=== PATIENT | female | born 1960 | race Caucasian/White ===

== ENCOUNTER 2017-11-21 19:42 | Emergency (ER) | payer MEDICAID ==
[~2017-11-21] VITALS: Ht 175.3 cm; Wt 63.6 kg
[~2017-11-21 19:42] MED LIST: AZIT250T27 PO; BECL8.7A3 IH; COM5T PO; COMIN IH; FOLI-43 PO; HYDR25CA PO; IBUP-1986 PO; METH4TAB81 PO; MUPI15CR TOP; NEOM14.216 TP; OLAN5TAB5 PO; PRED20TA PO; TIOT18CA7 IH; VAL5T PO; [UNRECOGNIZED DRUG - CODE] PO
[2017-11-21 19:48] VITALS: BP 127/40
[2017-11-21 20:33] LABS: BASOPHILS % (AUTO) 0.3 % (0-1); EOSINOPHILS # (AUTO) 0.5 X10'3 (0-0.9); EOSINOPHILS % (AUTO) 7.7 % (0-6); HEMOGLOBIN 13.5 g/dl (12.0-16.0); LYMPHOCYTES # (AUTO) 2.7 X10'3 (1.1-4.8); LYMPHOCYTES % (AUTO) 43.9 % (21-51); MEAN CORPUSCULAR HEMOGLOBIN 31.7 PG (27.0-31.0); MEAN CORPUSCULAR HGB CONC 32.9 % (33.0-36.5); MEAN CORPUSCULAR VOLUME 96.3 FL (78-98); MEAN PLATELET VOLUME 7.7 FL (7.4-10.4); MONOCYTES # (AUTO) 0.6 X10'3 (0-0.9); MONOCYTES % (AUTO) 9.7 % (2-12); NEUTROPHILS # (AUTO) 2.4 X10'3 (1.8-7.7); NEUTROPHILS % (AUTO) 38.4 % (42-75); PLATELET COUNT 206 X10'3 (140-440); RED BLOOD COUNT 4.26 X10'6 (4.20-5.60); WHITE BLOOD COUNT 6.2 X10'3 (4.5-11.0)
[2017-11-21] MEDS ORDERED: azithromycin/NS 500mg/250ml 250 ML IV ONE (20:35)
[2017-11-21] MEDS ORDERED: CefTRIAXone 2gm/NS 100ml IVPB 100 ML IV ONE (20:35)
[2017-11-21] MEDS ORDERED: ipratropium/albuterol 3ml nebule NEB ONE (20:35)
[2017-11-21 20:49] LABS: ALANINE AMINOTRANSFERASE 86 U/L (12-78); ALBUMIN 3.7 G/DL (3.4-5.0); ALKALINE PHOSPHATASE 109 IU/L (46-116); ANION GAP 3 (8-16); ASPARTATE AMINO TRANSFERASE 98 U/L (10-37); BILIRUBIN,TOTAL 0.2 MG/DL (0.1-1.0); BLOOD UREA NITROGEN 12 MG/DL (7-18); BUN/CREATININE RATIO 12.6 (6.6-38.0); CALCIUM 9.6 MG/DL (8.5-10.1); CHLORIDE 109 MMOL/L (99-107); CREATININE 0.95 MG/DL (0.40-0.90); GLUCOSE 94 MG/DL (70-104); POTASSIUM 4.4 MMOL/L (3.5-5.1); SODIUM 144 MMOL/L (135-145); TOTAL CARBON DIOXIDE 31.7 MMOL/L (24-32); TOTAL PROTEIN 7.3 G/DL (6.4-8.2); eGFR 61 ML/MIN
[2017-11-21 20:56] LABS: MAGNESIUM 2.2 MG/DL (1.5-2.4)
== END 2017-11-21 21:08 | disposition left against medical advice (07) ==
LOC: ER 19:43
DX: J18.1 Lobar pneumonia, unspecified organism (principal); B19.20 Unspecified viral hepatitis C without hepatic coma; F41.9 Anxiety disorder, unspecified; J44.0 Chronic obstructive pulmonary disease with (acute) lower respiratory infection; F17.210 Nicotine dependence, cigarettes, uncomplicated; F31.9 Bipolar disorder, unspecified
CPT/HCPCS: 36415; 71010; 80053; 83735; 83880; 84484; 85025; 99285; J0456; J0696

== ENCOUNTER 2018-03-01 14:08 | Inpatient (IN) | payer MEDICAID ==
[~2018-03-01] VITALS: Ht 177.8 cm; Wt 63.6 kg
[2018-03-01 15:14] LABS: BASOPHILS % (AUTO) 0.1 % (0-1); EOSINOPHILS # (AUTO) 0.1 X10'3 (0-0.9); EOSINOPHILS % (AUTO) 0.8 % (0-6); HEMATOCRIT 36.8 % (35.0-45.0); HEMOGLOBIN 12.2 g/dl (12.0-16.0); LYMPHOCYTES # (AUTO) 1.8 X10'3 (1.1-4.8); LYMPHOCYTES % (AUTO) 15.3 % (21-51); MEAN CORPUSCULAR HGB CONC 33.1 % (33.0-36.5); MEAN CORPUSCULAR VOLUME 96.7 FL (78-98); MEAN PLATELET VOLUME 9.1 FL (7.4-10.4); MONOCYTES # (AUTO) 1.3 X10'3 (0-0.9); NEUTROPHILS # (AUTO) 8.3 X10'3 (1.8-7.7); NEUTROPHILS % (AUTO) 72.8 % (42-75); PLATELET COUNT 187 X10'3 (140-440); RED BLOOD COUNT 3.81 X10'6 (4.20-5.60); RED CELL DISTRIBUTION WIDTH 14.4 % (11.5-14.5); WHITE BLOOD COUNT 11.4 X10'3 (4.5-11.0)
[2018-03-01 15:28] LABS: ALANINE AMINOTRANSFERASE 31 U/L (12-78); ALBUMIN 2.6 G/DL (3.4-5.0); ALBUMIN/GLOBULIN RATIO 0.5 (1.1-1.5); ALKALINE PHOSPHATASE 85 IU/L (46-116); ANION GAP 12 (8-16); ASPARTATE AMINO TRANSFERASE 27 U/L (10-37); BILIRUBIN,TOTAL 0.3 MG/DL (0.1-1.0); BLOOD UREA NITROGEN 9 MG/DL (7-18); BUN/CREATININE RATIO 10.5 (6.6-38.0); CALCIUM 9.8 MG/DL (8.5-10.1); CHLORIDE 96 MMOL/L (99-107); CREATININE 0.86 MG/DL (0.40-0.90); GLUCOSE 136 MG/DL (70-104); POTASSIUM 3.9 MMOL/L (3.5-5.1); SODIUM 133 MMOL/L (135-145); TOTAL CARBON DIOXIDE 25.1 MMOL/L (24-32); TOTAL PROTEIN 7.9 G/DL (6.4-8.2); eGFR 69 ML/MIN
[2018-03-01 15:34] LABS: ANISOCYTOSIS 1+; PLATELET ESTIMATE NORMAL; TOTAL CELLS COUNTED 100
[2018-03-01] MEDS ORDERED: levoFLOXACIN-Levaquin 500mg/D5 100 ML IV ONE (15:55)
[2018-03-01] MEDS ORDERED: ipratropium/albuterol 3ml nebule NEB ONE (15:55)
[2018-03-01 16:10] LABS: LIPASE 85 U/L (73-393)
[2018-03-01] MEDS ORDERED: magnesium hydroxide 30ml (MOM) UD suspension PO PRN (17:45)
[2018-03-01] MEDS ORDERED: ibuprofen tablet 400 MG TABLET PO PRN (17:45)
[2018-03-01] MEDS ORDERED: mag hydrox/Alum hydrox/simeth 30ml oral suspension PO PRN (17:45)
[2018-03-01] MEDS ORDERED: ondansetron/PF 4mg/2ml inj IV PRN (17:45)
[2018-03-01] MEDS ORDERED: hydrOXYzine 25 MG tablet PO PRN (17:50)
[2018-03-01] MEDS ORDERED: prednisone 10mg tablet PO SCH (17:55)
[2018-03-01] MEDS ORDERED: albuterol 2.5 MG/3 ML nebule NEB PRN (17:55)
[2018-03-01] MEDS: normal saline 1000ml 1,000 ML IV SCH (18:31)
[2018-03-01] MEDS: predniSONE 20 mg tablet PO SCH (18:32)
[2018-03-01] MEDS: enoxaparin 40mg/0.4ml syringe SUBCUT SCH (18:33)
[2018-03-01] MEDS: ipratropium/albuterol 3ml nebule NEB SCH ×2 (19:26→23:13)
[2018-03-01 19:45] LABS: URINE AMPHETAMINE SCREEN NEGATIVE (Neg); URINE BARBITUATE SCREEN NEGATIVE (Neg); URINE BENZODIAZEPINES SCREEN NEGATIVE (Neg); URINE CANNABINOID SCREEN NEGATIVE (Neg); URINE COCAINE SCREEN NEGATIVE (Neg); URINE METHADONE SCREEN NEGATIVE (Neg); URINE OPIATE SCREEN POSITIVE (Neg); URINE PHENCYCLIDINE SCREEN NEGATIVE (Neg)
[2018-03-01] MEDS ORDERED: lithium carbonate 150mg capsule PO SCH (20:00)
[2018-03-01] MEDS ORDERED: olanzapine 10mg tablet PO SCH (21:00)
[2018-03-01] MEDS ORDERED: [UNRECOGNIZED DRUG - OTHER] IH SCH (21:00)
[2018-03-01] MEDS ORDERED: temazepam 15mg capsule PO PRN (21:00)
[2018-03-01] MEDS ORDERED: ALBUTEROL SULFATE IH SCH (21:00)
[2018-03-01] MEDS ORDERED: IPRATROPIUM IH SCH (21:00)
[2018-03-01 21:15] VITALS: BP 138/56
[2018-03-01 23:00] VITALS: BP 106/47
[2018-03-01 23:31] LABS: ABG BASE EXCESS 0.1 mmol/L (-2.0-3.0); ABG OXYGEN SATURATION 98.5 % (95-98); ABG PCO2 (T) 40.7 mmHg (32.0-45.0); ABG PH (T) 7.404 (7.350-7.450); ABG PO2 (T) 118.7 mmHg (83-108); ALLEN'S TEST Positive; FCOHb 0.3 % (0.5-1.5); FLOW 4 L/min; FMetHb 0.1 % (0.3-1.12); FO2Hb 98.1 % (94-100); PATIENT TEMPERATURE 36.6; TOTAL HEMOGLOBIN 11.7 G/dl (12.0-16.0)
[2018-03-02] MEDS: ipratropium/albuterol 3ml nebule NEB SCH ×2 (03:22→07:24)
[2018-03-02] MEDS: normal saline 1000ml 1,000 ML IV SCH (05:11)
[2018-03-02 06:05] LABS: BASOPHILS % (AUTO) 0.1 % (0-1); EOSINOPHILS % (AUTO) 0.1 % (0-6); HEMATOCRIT 36.4 % (35.0-45.0); HEMOGLOBIN 11.9 g/dl (12.0-16.0); LYMPHOCYTES # (AUTO) 0.7 X10'3 (1.1-4.8); LYMPHOCYTES % (AUTO) 9.2 % (21-51); MEAN CORPUSCULAR HEMOGLOBIN 31.8 PG (27.0-31.0); MEAN CORPUSCULAR HGB CONC 32.6 % (33.0-36.5); MEAN CORPUSCULAR VOLUME 97.4 FL (78-98); MEAN PLATELET VOLUME 9.8 FL (7.4-10.4); MONOCYTES # (AUTO) 0.4 X10'3 (0-0.9); MONOCYTES % (AUTO) 5.1 % (2-12); NEUTROPHILS # (AUTO) 6.2 X10'3 (1.8-7.7); NEUTROPHILS % (AUTO) 85.5 % (42-75); PLATELET COUNT 159 X10'3 (140-440); RED BLOOD COUNT 3.74 X10'6 (4.20-5.60); RED CELL DISTRIBUTION WIDTH 13.6 % (11.5-14.5); WHITE BLOOD COUNT 7.4 X10'3 (4.5-11.0)
[2018-03-02 06:11] LABS: ALBUMIN 2.3 G/DL (3.4-5.0); ANION GAP 11 (8-16); BLOOD UREA NITROGEN 14 MG/DL (7-18); BUN/CREATININE RATIO 13.7 (6.6-38.0); CALCIUM 9.9 MG/DL (8.5-10.1); CHLORIDE 104 MMOL/L (99-107); CREATININE 1.02 MG/DL (0.40-0.90); GLUCOSE 190 MG/DL (70-104); POTASSIUM 4.1 MMOL/L (3.5-5.1); SODIUM 138 MMOL/L (135-145); TOTAL CARBON DIOXIDE 23.4 MMOL/L (24-32); eGFR 56 ML/MIN
[2018-03-02] MEDS ORDERED: mupirocin 2% ointment 22GM TP SCH (08:00)
[2018-03-02] MEDS ORDERED: non-formulary drug (Tiotropium Bromide* (Spiriva*) 18 MCG) IH SCH (08:00)
[2018-03-02] MEDS ORDERED: fluticasone furoate 100MCG/puff inhaler IH SCH (08:00)
[2018-03-02] MEDS ORDERED: folic acid 1mg tablet PO SCH (08:00)
[2018-03-02] MEDS: predniSONE 20 mg tablet PO SCH (08:58)
[2018-03-02] MEDS: enoxaparin 40mg/0.4ml syringe SUBCUT SCH (08:58)
[2018-03-02 09:01] VITALS: BP 101/47
[2018-03-02] MEDS ORDERED: levoFLOXACIN 750MG TABLET PO SCH (11:00)
== END 2018-03-02 11:25 | disposition left against medical advice (07) | DRG 140 ==
LOC: ER 14:09 → ED HOLD 17:42 → EDBEDREQ 20:39 → SUR 3N 21:18
PROVIDERS: ADMIT Hospitalist; ATTEND Internal Medicine
DX: J44.0 Chronic obstructive pulmonary disease with (acute) lower respiratory infection (principal); J96.01 Acute respiratory failure with hypoxia; J18.1 Lobar pneumonia, unspecified organism; E46 Unspecified protein-calorie malnutrition; K74.60 Unspecified cirrhosis of liver; J44.1 Chronic obstructive pulmonary disease with (acute) exacerbation; E87.1 Hypo-osmolality and hyponatremia; B19.20 Unspecified viral hepatitis C without hepatic coma; F19.10 Other psychoactive substance abuse, uncomplicated; Z68.20 Body mass index [BMI] 20.0-20.9, adult; Z53.21 Procedure and treatment not carried out due to patient leaving prior to being seen by health care provider; F31.9 Bipolar disorder, unspecified; F17.210 Nicotine dependence, cigarettes, uncomplicated; G89.29 Other chronic pain; F41.9 Anxiety disorder, unspecified; R07.89 Other chest pain; Z88.8 Allergy status to other drugs, medicaments and biological substances; Z88.0 Allergy status to penicillin; Z79.899 Other long term (current) drug therapy
CPT/HCPCS: 36415; 36600; 71046; 80048; 80053; 80305; 82803; 83605; 83690; 85018; 85025; 87040; 87070; 94640; 94760; 96365; 97116; 97161; 97530; 99285; J1650; J1956; J2405; J7030; J7512

== ENCOUNTER 2018-04-27 21:19 | Emergency (ER) | payer MEDICAID ==
[~2018-04-27 21:19] MED LIST changes: -AZIT250T27 PO
== END 2018-04-27 22:45 | disposition left against medical advice (07) ==
LOC: ER 21:19
DX: T14.8XXA Other injury of unspecified body region, initial encounter (principal); Z53.21 Procedure and treatment not carried out due to patient leaving prior to being seen by health care provider; W57.XXXA Bitten or stung by nonvenomous insect and other nonvenomous arthropods, initial encounter; Y93.89 Activity, other specified; Y92.89 Other specified places as the place of occurrence of the external cause; Y99.8 Other external cause status

== ENCOUNTER 2018-04-29 13:37 | Emergency (ER) | payer MEDICAID ==
[~2018-04-29] VITALS: Ht 177.8 cm; Wt 64.7 kg
[2018-04-29] MEDS ORDERED: SULF1TAB49 PO (14:02)
[2018-04-29 14:14] VITALS: BP 111/56
== END 2018-04-29 14:16 | disposition home or self-care (01) ==
LOC: ER 13:38
DX: L03.113 Cellulitis of right upper limb (principal); L02.413 Cutaneous abscess of right upper limb; L08.9 Local infection of the skin and subcutaneous tissue, unspecified; J44.9 Chronic obstructive pulmonary disease, unspecified; Z86.19 Personal history of other infectious and parasitic diseases; Z56.0 Unemployment, unspecified; Z88.8 Allergy status to other drugs, medicaments and biological substances; Z88.6 Allergy status to analgesic agent; Z79.899 Other long term (current) drug therapy
CPT/HCPCS: 99283; A6255

== ENCOUNTER 2018-04-30 22:38 | Emergency (ER) | payer MEDICAID ==
[~2018-04-30] VITALS: Ht 175.3 cm; Wt 61.4 kg
[~2018-04-30 22:38] MED LIST changes: +SULF1TAB49 PO
[2018-04-30] MEDS ORDERED: normal saline 1000ML IV soln IV ONE (22:55)
[2018-04-30 23:13] LABS: CLARITY,URINE CLEAR (Clear); COLOR,URINE STRAW (Yellow); GLUCOSE, URINE NEGATIVE (Neg); KETONES,URINE NEGATIVE (Neg); LEUKOCYTE ESTERASE ,URINE NEGATIVE (Neg); NITRITES, URINE NEGATIVE (Neg); OCCULT BLOOD,URINE NEGATIVE (Neg); PROTEIN,URINE NEGATIVE (Neg); UROBILINOGEN,URINE 0.2 E.U/dL (0.2-1.0)
[2018-04-30 23:19] LABS: UA COLLECTION TYPE CLN CATCH MIDSTREAM
[2018-04-30] MEDS ORDERED: iohexol 300mg/ml 100ml inj. ONE (23:19)
[2018-04-30 23:31] LABS: BASOPHILS % (AUTO) 0.3 % (0-1); EOSINOPHILS # (AUTO) 0.5 X10'3 (0-0.9); EOSINOPHILS % (AUTO) 4.9 % (0-6); HEMATOCRIT 37.1 % (35.0-45.0); HEMOGLOBIN 12.5 g/dl (12.0-16.0); LYMPHOCYTES # (AUTO) 3.4 X10'3 (1.1-4.8); LYMPHOCYTES % (AUTO) 32.5 % (21-51); MEAN CORPUSCULAR HEMOGLOBIN 31.7 PG (27.0-31.0); MEAN CORPUSCULAR HGB CONC 33.8 % (33.0-36.5); MEAN PLATELET VOLUME 8.4 FL (7.4-10.4); MONOCYTES # (AUTO) 0.8 X10'3 (0-0.9); NEUTROPHILS # (AUTO) 5.6 X10'3 (1.8-7.7); NEUTROPHILS % (AUTO) 54.3 % (42-75); PLATELET COUNT 127 X10'3 (140-440); RED BLOOD COUNT 3.94 X10'6 (4.20-5.60); RED CELL DISTRIBUTION WIDTH 14.2 % (11.5-14.5); WHITE BLOOD COUNT 10.4 X10'3 (4.5-11.0)
[2018-04-30 23:42] LABS: INR 0.9 INR; PARTIAL THROMBOPLASTIN TIME 25 SECONDS (22-32); PROTHROMBIN TIME 9.1 SECONDS (9.0-12.0)
[2018-04-30 23:47] LABS: ALANINE AMINOTRANSFERASE 54 U/L (12-78); ALBUMIN 3.4 G/DL (3.4-5.0); ALBUMIN/GLOBULIN RATIO 0.9 (1.1-1.5); ALKALINE PHOSPHATASE 89 IU/L (46-116); ANION GAP 8 (8-16); ASPARTATE AMINO TRANSFERASE 97 U/L (10-37); BILIRUBIN,TOTAL 0.2 MG/DL (0.1-1.0); BLOOD UREA NITROGEN 11 MG/DL (7-18); BUN/CREATININE RATIO 10.1 (6.6-38.0); CALCIUM 9.3 MG/DL (8.5-10.1); CHLORIDE 102 MMOL/L (99-107); CREATININE 1.09 MG/DL (0.40-0.90); GLUCOSE 103 MG/DL (70-104); MAGNESIUM 2.1 MG/DL (1.5-2.4); SODIUM 137 MMOL/L (135-145); TOTAL CARBON DIOXIDE 26.6 MMOL/L (24-32); TOTAL PROTEIN 7.2 G/DL (6.4-8.2); eGFR 52 ML/MIN
[2018-05-01] MEDS ORDERED: MUPI22OI30 TOP (01:39)
[2018-05-01 01:45] VITALS: BP 102/80
[2018-05-01] MEDS ORDERED: CLIN300C85 PO (22:39)
== END 2018-05-01 02:10 | disposition home or self-care (01) ==
LOC: ER 22:39
DX: S51.801A Unspecified open wound of right forearm, initial encounter (principal); L08.89 Other specified local infections of the skin and subcutaneous tissue; J44.9 Chronic obstructive pulmonary disease, unspecified; Z88.0 Allergy status to penicillin; Z88.8 Allergy status to other drugs, medicaments and biological substances; X58.XXXA Exposure to other specified factors, initial encounter; Y93.89 Activity, other specified; Y92.89 Other specified places as the place of occurrence of the external cause; Y99.8 Other external cause status
CPT/HCPCS: 36415; 73201; 80053; 81003; 83605; 83735; 84145; 85025; 85610; 85730; 87040; 93005; 99285; J7030; Q9967; 96360

== ENCOUNTER 2018-05-04 11:24 | Outpatient (CLI) | payer MEDICAID ==
[~2018-05-04 11:24] MED LIST changes: +CLIN300C85 PO; +MUPI22OI30 TOP
== END 2018-05-04 23:59 | disposition home or self-care (01) ==
LOC: CARD DIAG 11:24
PROVIDERS: ATTEND Nurse Practitioner
DX: I08.0 Rheumatic disorders of both mitral and aortic valves (principal); R91.8 Other nonspecific abnormal finding of lung field; J44.9 Chronic obstructive pulmonary disease, unspecified; Z87.891 Personal history of nicotine dependence
CPT/HCPCS: 93306

== ENCOUNTER 2018-06-23 23:32 | Emergency (ER) | payer MEDICAID ==
[~2018-06-23] VITALS: Ht 175.3 cm; Wt 63.6 kg
[~2018-06-23 23:32] MED LIST changes: -MUPI22OI30 TOP; -SULF1TAB49 PO
[2018-06-24] MEDS ORDERED: HYDROcodone/acetaminophen 10/325mg tab PO ONE (00:40)
[2018-06-24] MEDS ORDERED: IBUP-1986 PO (00:43)
[2018-06-24] MEDS ORDERED: HYDR-569 PO (00:43)
[2018-06-24 00:53] VITALS: BP 101/41
== END 2018-06-24 00:54 | disposition home or self-care (01) ==
LOC: ER 23:33
DX: S80.02XA Contusion of left knee, initial encounter (principal); S80.01XA Contusion of right knee, initial encounter; J44.9 Chronic obstructive pulmonary disease, unspecified; F17.200 Nicotine dependence, unspecified, uncomplicated; Z88.0 Allergy status to penicillin; Z88.8 Allergy status to other drugs, medicaments and biological substances; Z79.899 Other long term (current) drug therapy; Z56.0 Unemployment, unspecified; W19.XXXA Unspecified fall, initial encounter; Y93.89 Activity, other specified; Y92.89 Other specified places as the place of occurrence of the external cause; Y99.8 Other external cause status
CPT/HCPCS: 73564; 99284

== ENCOUNTER 2018-06-24 09:26 | Emergency (ER) | payer MEDICAID ==
[~2018-06-24] VITALS: Ht 175.3 cm; Wt 63.6 kg
[~2018-06-24 09:26] MED LIST changes: +HYDR-569 PO
[2018-06-24 09:37] VITALS: BP 104/66
[2018-06-24] MEDS ORDERED: HYDROcodone/acetaminophen 5mg/325mg tablet PO ONE (10:15)
== END 2018-06-24 10:41 | disposition home or self-care (01) ==
LOC: ER 09:27
DX: S90.31XA Contusion of right foot, initial encounter (principal); J44.9 Chronic obstructive pulmonary disease, unspecified; Z88.0 Allergy status to penicillin; Z88.8 Allergy status to other drugs, medicaments and biological substances; Z79.899 Other long term (current) drug therapy; Z56.0 Unemployment, unspecified
CPT/HCPCS: 73660; 99284

== ENCOUNTER 2018-06-30 14:04 | Emergency (ER) | payer MEDICAID ==
[~2018-06-30] VITALS: Ht 177.8 cm; Wt 70.0 kg
[2018-06-30 15:15] LABS: ACETAMINOPHEN < 2.0 UG/ML (10-30); ALANINE AMINOTRANSFERASE 49 U/L (12-78); ALBUMIN 2.9 G/DL (3.4-5.0); ALBUMIN/GLOBULIN RATIO 0.9 (1.1-1.5); ALKALINE PHOSPHATASE 76 IU/L (46-116); ANION GAP 7 (8-16); ASPARTATE AMINO TRANSFERASE 64 U/L (10-37); BILIRUBIN,TOTAL 0.2 MG/DL (0.1-1.0); BLOOD UREA NITROGEN 16 MG/DL (7-18); BUN/CREATININE RATIO 16.3 (6.6-38.0); CALCIUM 8.7 MG/DL (8.5-10.1); CHLORIDE 109 MMOL/L (99-107); CREATININE 0.98 MG/DL (0.40-0.90); ETHANOL 0.253 GM/DL (0.0-0.010); GLUCOSE 87 MG/DL (70-104); POTASSIUM 4.4 MMOL/L (3.5-5.1); SODIUM 142 MMOL/L (135-145); TOTAL CARBON DIOXIDE 25.8 MMOL/L (24-32); TOTAL PROTEIN 6.2 G/DL (6.4-8.2); eGFR 59 ML/MIN
[2018-06-30 15:31] LABS: URINE HCG NEGATIVE (NEG)
[2018-06-30 15:34] LABS: CLARITY,URINE CLEAR (Clear); COLOR,URINE YELLOW (Yellow); GLUCOSE, URINE NEGATIVE (Neg); KETONES,URINE NEGATIVE (Neg); LEUKOCYTE ESTERASE ,URINE NEGATIVE (Neg); NITRITES, URINE NEGATIVE (Neg); OCCULT BLOOD,URINE NEGATIVE (Neg); PROTEIN,URINE NEGATIVE (Neg); UROBILINOGEN,URINE 0.2 E.U/dL (0.2-1.0)
[2018-06-30 15:36] LABS: UA COLLECTION TYPE VOIDED
[2018-06-30] MEDS ORDERED: normal saline 1000ML IV soln IV ONE (15:40)
[2018-06-30] MEDS ORDERED: folic acid 1mg/0.2ml inj IV ONE (15:40)
[2018-06-30] MEDS ORDERED: thiamine 100mg/ml 2ml inj. IV ONE (15:40)
[2018-06-30 17:23] VITALS: BP 112/55
[2018-07-01] MEDS ORDERED: IBUP-1984 PO (17:00)
== END 2018-06-30 17:24 | disposition home or self-care (01) ==
LOC: ER 14:04
DX: E86.0 Dehydration (principal); T42.6X5A Adverse effect of other antiepileptic and sedative-hypnotic drugs, initial encounter; F10.129 Alcohol abuse with intoxication, unspecified; J44.9 Chronic obstructive pulmonary disease, unspecified; F41.9 Anxiety disorder, unspecified; F31.9 Bipolar disorder, unspecified; Z56.0 Unemployment, unspecified; Z79.899 Other long term (current) drug therapy; Z88.8 Allergy status to other drugs, medicaments and biological substances; Z88.0 Allergy status to penicillin; Z88.5 Allergy status to narcotic agent; W01.0XXA Fall on same level from slipping, tripping and stumbling without subsequent striking against object, initial encounter; Y93.89 Activity, other specified; Y92.099 Unspecified place in other non-institutional residence as the place of occurrence of the external cause; Y99.9 Unspecified external cause status; Y90.9 Presence of alcohol in blood, level not specified
CPT/HCPCS: 36415; 80053; 80320; 80329; 81003; 81025; 93005; 96361; 96374; 96375; 99285; J3411; J3490; J7030

== ENCOUNTER 2018-07-26 21:14 | Emergency (ER) | payer MEDICAID ==
[~2018-07-26] VITALS: Ht 172.7 cm; Wt 63.6 kg
[~2018-07-26 21:14] MED LIST changes: +IBUP-1984 PO
[2018-07-26 21:45] LABS: BASOPHILS % (AUTO) 0.3 % (0-1); EOSINOPHILS # (AUTO) 0.6 X10'3 (0-0.9); EOSINOPHILS % (AUTO) 6.5 % (0-6); HEMATOCRIT 39.2 % (35.0-45.0); LYMPHOCYTES # (AUTO) 4.5 X10'3 (1.1-4.8); LYMPHOCYTES % (AUTO) 50.9 % (21-51); MEAN CORPUSCULAR HEMOGLOBIN 31.9 PG (27.0-31.0); MEAN CORPUSCULAR HGB CONC 33.2 % (33.0-36.5); MEAN CORPUSCULAR VOLUME 96.2 FL (78-98); MEAN PLATELET VOLUME 7.5 FL (7.4-10.4); MONOCYTES # (AUTO) 0.5 X10'3 (0-0.9); MONOCYTES % (AUTO) 5.2 % (2-12); NEUTROPHILS # (AUTO) 3.3 X10'3 (1.8-7.7); NEUTROPHILS % (AUTO) 37.1 % (42-75); PLATELET COUNT 192 X10'3 (140-440); RED BLOOD COUNT 4.07 X10'6 (4.20-5.60); WHITE BLOOD COUNT 8.8 X10'3 (4.5-11.0)
[2018-07-26 21:55] LABS: INR 0.9 INR; PARTIAL THROMBOPLASTIN TIME 24 SECONDS (22-32); PROTHROMBIN TIME 9.5 SECONDS (9.0-12.0)
[2018-07-26 22:21] LABS: ALANINE AMINOTRANSFERASE 63 U/L (12-78); ALBUMIN 3.5 G/DL (3.4-5.0); ALKALINE PHOSPHATASE 102 IU/L (46-116); ANION GAP 7 (8-16); ASPARTATE AMINO TRANSFERASE 65 U/L (10-37); BILIRUBIN,TOTAL 0.1 MG/DL (0.1-1.0); BLOOD UREA NITROGEN 18 MG/DL (7-18); CALCIUM 8.5 MG/DL (8.5-10.1); CHLORIDE 108 MMOL/L (99-107); CREATININE 1.06 MG/DL (0.40-0.90); GLUCOSE 94 MG/DL (70-104); POTASSIUM 4.2 MMOL/L (3.5-5.1); SODIUM 139 MMOL/L (135-145); TOTAL CARBON DIOXIDE 24.5 MMOL/L (24-32); TOTAL PROTEIN 6.9 G/DL (6.4-8.2); eGFR 54 ML/MIN
[2018-07-26 22:26] LABS: ETHANOL 0.313 GM/DL (0.0-0.010)
[2018-07-26 23:55] VITALS: BP 129/75
== END 2018-07-26 23:57 | disposition home or self-care (01) ==
LOC: ER 21:14
DX: F10.129 Alcohol abuse with intoxication, unspecified (principal); J44.9 Chronic obstructive pulmonary disease, unspecified; F17.210 Nicotine dependence, cigarettes, uncomplicated; Z56.0 Unemployment, unspecified; Z88.5 Allergy status to narcotic agent; Z88.0 Allergy status to penicillin; Z79.899 Other long term (current) drug therapy; Y90.9 Presence of alcohol in blood, level not specified
CPT/HCPCS: 36415; 71045; 80053; 80320; 84484; 85025; 85610; 85730; 93005; 99285

== ENCOUNTER 2018-08-07 21:51 | Emergency (ER) | payer MEDICAID ==
[~2018-08-07] VITALS: Ht 175.3 cm; Wt 59.3 kg
[~2018-08-07 21:51] MED LIST changes: -IBUP-1984 PO
[2018-08-07 22:02] VITALS: BP 110/67
== END 2018-08-07 23:22 | disposition home or self-care (01) ==
LOC: ER 21:52
DX: S61.212A Laceration without foreign body of right middle finger without damage to nail, initial encounter (principal); K74.60 Unspecified cirrhosis of liver; J44.9 Chronic obstructive pulmonary disease, unspecified; Z56.0 Unemployment, unspecified; Z72.89 Other problems related to lifestyle; Z88.0 Allergy status to penicillin; Z88.8 Allergy status to other drugs, medicaments and biological substances; Z98.890 Other specified postprocedural states; W26.8XXA Contact with other sharp object(s), not elsewhere classified, initial encounter; Y93.89 Activity, other specified; Y92.89 Other specified places as the place of occurrence of the external cause; Y99.8 Other external cause status
CPT/HCPCS: 12002; 99283; A6449

== ENCOUNTER 2018-08-14 21:47 | Emergency (ER) | payer MEDICAID ==
[~2018-08-14] VITALS: Ht 175.3 cm; Wt 66.7 kg
[2018-08-14 22:08] VITALS: BP 111/68
== END 2018-08-15 00:57 | disposition left against medical advice (07) ==
LOC: ER 21:47
DX: T14.8XXA Other injury of unspecified body region, initial encounter (principal); Z53.21 Procedure and treatment not carried out due to patient leaving prior to being seen by health care provider; W57.XXXA Bitten or stung by nonvenomous insect and other nonvenomous arthropods, initial encounter; Y93.89 Activity, other specified; Y92.89 Other specified places as the place of occurrence of the external cause; Y99.8 Other external cause status

== ENCOUNTER 2018-08-21 18:34 | Emergency (ER) | payer MEDICAID ==
[~2018-08-21] VITALS: Ht 175.3 cm; Wt 65.0 kg
[~2018-08-21 18:34] MED LIST changes: +CEPH-572 PO; +DIPH25CA83 PO; +SULF1TAB49 PO
[2018-08-21] MEDS ORDERED: CLIN300C85 PO (21:46)
[2018-08-21] MEDS ORDERED: dexamethasone 4mg tablet PO STA (21:47)
[2018-08-21 21:56] VITALS: BP 128/73
== END 2018-08-21 22:03 | disposition home or self-care (01) ==
LOC: ER 18:34
DX: L03.312 Cellulitis of back [any part except buttock and flank] (principal); L03.818 Cellulitis of other sites; J44.9 Chronic obstructive pulmonary disease, unspecified; Z86.19 Personal history of other infectious and parasitic diseases; Z98.890 Other specified postprocedural states; Z56.0 Unemployment, unspecified; Z88.0 Allergy status to penicillin; Z88.8 Allergy status to other drugs, medicaments and biological substances; Z79.2 Long term (current) use of antibiotics; Z79.899 Other long term (current) drug therapy
CPT/HCPCS: 99283; J8540

== ENCOUNTER 2018-11-22 15:00 | Emergency (ER) | payer MEDICAID ==
[~2018-11-22 15:00] MED LIST changes: -CEPH-572 PO; +HYDR-4383 PO; -HYDR-569 PO; -SULF1TAB49 PO
== END 2018-11-22 16:17 | disposition left against medical advice (07) ==
LOC: ER 15:00
DX: H57.10 Ocular pain, unspecified eye (principal); Z53.21 Procedure and treatment not carried out due to patient leaving prior to being seen by health care provider

== ENCOUNTER 2018-11-22 23:27 | Emergency (ER) | payer MEDICAID ==
[~2018-11-22] VITALS: Ht 172.7 cm; Wt 67.0 kg
[2018-11-22 23:32] VITALS: BP 115/68
--- NOTE | 2018-11-23 00:32 | NUR ---
NO RESPONSE FROM LOBBY AFTER 3 ATTEMPTS TO ROOM. CALL PLACED TO NUMBER ON FILE, RESULTED IN A NON-WORKING NUMBER RECORDING. DR. ARNDT INFORMED.
== END 2018-11-23 00:34 | disposition left against medical advice (07) ==
LOC: ER 23:27
DX: H57.11 Ocular pain, right eye (principal); Z53.21 Procedure and treatment not carried out due to patient leaving prior to being seen by health care provider

== ENCOUNTER 2018-11-30 03:16 | Emergency (ER) | payer MEDICAID ==
[~2018-11-30] VITALS: Ht 175.3 cm; Wt 55.2 kg
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
[2018-11-30] MEDS ORDERED: ondansetron 4mg rapidly disintigrating tab PO ONE (03:55)
[2018-11-30] MEDS ORDERED: acetaminophen 325mg tablet PO ONE (03:55)
[2018-11-30] MEDS ORDERED: ibuprofen tablet 400 MG TABLET PO ONE (03:55)
[2018-11-30 04:29] VITALS: BP 133/87
== END 2018-11-30 04:31 | disposition home or self-care (01) ==
LOC: ER 03:17
DX: S05.11XA Contusion of eyeball and orbital tissues, right eye, initial encounter (principal); M25.512 Pain in left shoulder; M54.2 Cervicalgia; J44.9 Chronic obstructive pulmonary disease, unspecified; Z88.0 Allergy status to penicillin; Z88.8 Allergy status to other drugs, medicaments and biological substances; Z79.899 Other long term (current) drug therapy; Z56.0 Unemployment, unspecified; W10.8XXA Fall (on) (from) other stairs and steps, initial encounter; Y93.89 Activity, other specified; Y92.89 Other specified places as the place of occurrence of the external cause; Y99.8 Other external cause status
CPT/HCPCS: 73030; 99284

== ENCOUNTER 2018-12-02 20:14 | Emergency (ER) | payer MEDICAID ==
[~2018-12-02] VITALS: Ht 175.3 cm; Wt 59.0 kg
[2018-12-02 20:24] VITALS: BP 132/76
== END 2018-12-02 22:38 | disposition left against medical advice (07) ==
LOC: ER 20:14
DX: M25.512 Pain in left shoulder (principal); Z53.21 Procedure and treatment not carried out due to patient leaving prior to being seen by health care provider

== ENCOUNTER 2018-12-15 12:44 | Emergency (ER) | payer MEDICAID | END 2018-12-15 14:32 | disposition left against medical advice (07) | LOC: ER 12:45 | DX: L98.9 Disorder of the skin and subcutaneous tissue, unspecified (principal); Z53.21 Procedure and treatment not carried out due to patient leaving prior to being seen by health care provider ==

== ENCOUNTER 2018-12-28 19:36 | Emergency (ER) | payer MEDICAID ==
[~2018-12-28] VITALS: Ht 177.8 cm; Wt 65.0 kg
[2018-12-28 19:45] VITALS: BP 135/75
--- NOTE | 2018-12-28 20:45 | NUR ---
NO RESPONSE FROM LOBBY AFTER 3 ATTEMPTS TO ROOM. ATTEMPTED TO CALL NUMBER ON FILE, HOWEVER, NUMBER NOT INSERVICE. DR STREET INFORMED.
== END 2018-12-28 23:04 | disposition left against medical advice (07) ==
LOC: ER 19:37
DX: R07.89 Other chest pain (principal); Z53.21 Procedure and treatment not carried out due to patient leaving prior to being seen by health care provider
CPT/HCPCS: 93005

== ENCOUNTER 2019-01-05 16:00 | Emergency (ER) | payer MEDICAID ==
[~2019-01-05] VITALS: Ht 172.7 cm; Wt 60.0 kg
[2019-01-05 16:16] VITALS: BP 109/39
[2019-01-05 16:52] LABS: BASOPHILS % (AUTO) 0.2 % (0-1); EOSINOPHILS % (AUTO) 0.2 % (0-6); HEMATOCRIT 38.5 % (35.0-45.0); HEMOGLOBIN 12.7 g/dl (12.0-16.0); LYMPHOCYTES % (AUTO) 7.3 % (21-51); MEAN CORPUSCULAR HEMOGLOBIN 32.9 PG (27.0-31.0); MEAN CORPUSCULAR HGB CONC 33.1 g/dL (33.0-36.5); MEAN CORPUSCULAR VOLUME 99.5 FL (78-98); MEAN PLATELET VOLUME 8.7 FL (7.4-10.4); MONOCYTES # (AUTO) 0.6 X10'3 (0-0.9); MONOCYTES % (AUTO) 4.6 % (2-12); NEUTROPHILS # (AUTO) 12.3 X10'3 (1.8-7.7); NEUTROPHILS % (AUTO) 87.7 % (42-75); PLATELET COUNT 173 X10'3 (140-440); RED BLOOD COUNT 3.87 X10'6 (4.20-5.60); RED CELL DISTRIBUTION WIDTH 16.7 % (11.5-14.5)
[2019-01-05 17:08] LABS: ALANINE AMINOTRANSFERASE 59 U/L (12-78); ALBUMIN 3.1 G/DL (3.4-5.0); ALBUMIN/GLOBULIN RATIO 0.6 (1.1-1.5); ALKALINE PHOSPHATASE 74 IU/L (46-116); ANION GAP 14 (8-16); ASPARTATE AMINO TRANSFERASE 82 U/L (10-37); BILIRUBIN,TOTAL 0.3 MG/DL (0.1-1.0); BLOOD UREA NITROGEN 14 MG/DL (7-18); CALCIUM 9.5 MG/DL (8.5-10.1); CHLORIDE 98 MMOL/L (99-107); GLUCOSE 133 MG/DL (70-104); POTASSIUM 3.8 MMOL/L (3.5-5.1); SODIUM 135 MMOL/L (135-145); TOTAL PROTEIN 7.9 G/DL (6.4-8.2); eGFR 57 ML/MIN
[2019-01-05 17:26] LABS: BANDS% (MANUAL) 11 % (0-10); BASOPHILS % (MANUAL) 0 % (0-1); EOSINOPHILS % (MANUAL) 1 % (0-6); LYMPHOCYTES % (MANUAL) 5 % (21-51); MONOCYTES % (MANUAL) 4 % (2-12); NEUTROPHILS % (MANUAL) 79 % (42-75); PLATELET ESTIMATE NORMAL; TOTAL CELLS COUNTED 100
[2019-01-05 17:27] LABS: TOXIC GRANULATION 1+; TOXIC VACUOLATION FEW
== END 2019-01-05 19:27 | disposition left against medical advice (07) ==
LOC: ER 16:00
DX: R05 Cough (principal); R53.1 Weakness; R53.83 Other fatigue; R11.0 Nausea; R07.81 Pleurodynia; R19.7 Diarrhea, unspecified; R06.00 Dyspnea, unspecified; Z53.21 Procedure and treatment not carried out due to patient leaving prior to being seen by health care provider
CPT/HCPCS: 36415; 71046; 80053; 83605; 85025; 87040

== ENCOUNTER 2019-01-10 13:56 | Inpatient (IN) | payer MEDICAID | END 2019-01-10 19:25 | disposition left against medical advice (07) | LOC: ER 13:56 → ED HOLD 17:24 ==

== ENCOUNTER 2019-01-20 18:12 | Emergency (ER) | payer MEDICAID ==
[~2019-01-20] VITALS: Ht 175.3 cm; Wt 65.6 kg
[~2019-01-20 18:12] MED LIST changes: -CLIN300C85 PO; -NEOM14.216 TP
[2019-01-20 18:55] VITALS: BP 146/99
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
[2019-01-20 19:22] LABS: BASOPHILS # (AUTO) 0.1 X10'3 (0-0.2); BASOPHILS % (AUTO) 0.8 % (0-1); EOSINOPHILS # (AUTO) 0.3 X10'3 (0-0.9); HEMATOCRIT 38.9 % (35.0-45.0); HEMOGLOBIN 12.9 g/dl (12.0-16.0); MEAN CORPUSCULAR HEMOGLOBIN 33.5 PG (27.0-31.0); MEAN CORPUSCULAR HGB CONC 33.2 g/dL (33.0-36.5); MEAN CORPUSCULAR VOLUME 100.8 FL (78-98); MONOCYTES # (AUTO) 0.5 X10'3 (0-0.9); MONOCYTES % (AUTO) 5.3 % (2-12); NEUTROPHILS # (AUTO) 5.7 X10'3 (1.8-7.7); NEUTROPHILS % (AUTO) 59.9 % (42-75); PLATELET COUNT 474 X10'3 (140-440); RED BLOOD COUNT 3.86 X10'6 (4.20-5.60); RED CELL DISTRIBUTION WIDTH 16.2 % (11.5-14.5); WHITE BLOOD COUNT 9.6 X10'3 (4.5-11.0)
--- NOTE | 2019-01-20 19:23 | NUR ---
Rec'd call from [facility], Case #[id number]
[2019-01-20 19:34] LABS: ALANINE AMINOTRANSFERASE 51 U/L (12-78); ALBUMIN 3.2 G/DL (3.4-5.0); ALBUMIN/GLOBULIN RATIO 0.6 (1.1-1.5); ALKALINE PHOSPHATASE 99 IU/L (46-116); ANION GAP 11 (8-16); ASPARTATE AMINO TRANSFERASE 74 U/L (10-37); BILIRUBIN,TOTAL 0.2 MG/DL (0.1-1.0); BLOOD UREA NITROGEN 13 MG/DL (7-18); BUN/CREATININE RATIO 12.5 (6.6-38.0); CALCIUM 10.3 MG/DL (8.5-10.1); CHLORIDE 99 MMOL/L (99-107); CREATININE 1.04 MG/DL (0.40-0.90); GLUCOSE 97 MG/DL (70-104); POTASSIUM 3.8 MMOL/L (3.5-5.1); SODIUM 135 MMOL/L (135-145); TOTAL CARBON DIOXIDE 25.1 MMOL/L (24-32); eGFR 55 ML/MIN
[2019-01-20] MEDS ORDERED: DOXY100C43 PO (19:48)
[2019-01-20 20:02] LABS: ANISOCYTOSIS 1+; PLATELET ESTIMATE INCREASED; POLYCHROMASIA FEW
== END 2019-01-20 20:19 | disposition home or self-care (01) ==
LOC: ER 18:12
DX: R10.13 Epigastric pain (principal); S01.80XA Unspecified open wound of other part of head, initial encounter; S41.102A Unspecified open wound of left upper arm, initial encounter; S41.101A Unspecified open wound of right upper arm, initial encounter; J44.9 Chronic obstructive pulmonary disease, unspecified; Z56.0 Unemployment, unspecified; Z88.0 Allergy status to penicillin; Z88.8 Allergy status to other drugs, medicaments and biological substances; Y04.8XXA Assault by other bodily force, initial encounter; Y93.89 Activity, other specified; Y92.89 Other specified places as the place of occurrence of the external cause; Y99.8 Other external cause status
CPT/HCPCS: 36415; 71046; 80053; 85025; 99283; 99284

== ENCOUNTER 2019-01-27 15:18 | Emergency (ER) | payer MEDICAID ==
[~2019-01-27] VITALS: Ht 175.3 cm; Wt 66.2 kg
[~2019-01-27 15:18] MED LIST changes: +DOXY100C43 PO
[2019-01-27 15:58] LABS: BASOPHILS # (AUTO) 0.1 X10'3 (0-0.2); EOSINOPHILS # (AUTO) 0.2 X10'3 (0-0.9); EOSINOPHILS % (AUTO) 3.1 % (0-6); LYMPHOCYTES # (AUTO) 2.9 X10'3 (1.1-4.8); LYMPHOCYTES % (AUTO) 40.1 % (21-51); MEAN CORPUSCULAR HEMOGLOBIN 33.4 PG (27.0-31.0); MEAN CORPUSCULAR HGB CONC 33.4 g/dL (33.0-36.5); MEAN PLATELET VOLUME 7.6 FL (7.4-10.4); MONOCYTES # (AUTO) 0.5 X10'3 (0-0.9); MONOCYTES % (AUTO) 6.9 % (2-12); NEUTROPHILS # (AUTO) 3.6 X10'3 (1.8-7.7); NEUTROPHILS % (AUTO) 48.9 % (42-75); PLATELET COUNT 358 X10'3 (140-440); RED CELL DISTRIBUTION WIDTH 15.9 % (11.5-14.5); WHITE BLOOD COUNT 7.3 X10'3 (4.5-11.0)
[2019-01-27] MEDS ORDERED: ondansetron/PF 4mg/2ml inj IV ONE (16:05)
[2019-01-27 16:12] LABS: ALANINE AMINOTRANSFERASE 33 U/L (12-78); ALBUMIN 3.1 G/DL (3.4-5.0); ALBUMIN/GLOBULIN RATIO 0.7 (1.1-1.5); ALKALINE PHOSPHATASE 84 IU/L (46-116); ANION GAP 7 (8-16); ASPARTATE AMINO TRANSFERASE 40 U/L (10-37); BILIRUBIN,TOTAL 0.2 MG/DL (0.1-1.0); BLOOD UREA NITROGEN 19 MG/DL (7-18); CALCIUM 9.6 MG/DL (8.5-10.1); CHLORIDE 103 MMOL/L (99-107); GLUCOSE 112 MG/DL (70-104); POTASSIUM 4.2 MMOL/L (3.5-5.1); SODIUM 137 MMOL/L (135-145); TOTAL CARBON DIOXIDE 26.8 MMOL/L (24-32); TOTAL PROTEIN 7.8 G/DL (6.4-8.2); eGFR 57 ML/MIN
[2019-01-27 16:22] LABS: PROTHROMBIN TIME 9.7 SECONDS (9.0-12.0)
[2019-01-27] MEDS ORDERED: proCHLORperazine 10 MG/2 ml inj IV PRN (16:45)
[2019-01-27] MEDS ORDERED: LIDOcaine Viscous 15ml cup MM PRN (16:45)
[2019-01-27] MEDS ORDERED: mag hydrox/Alum hydrox/simeth 30ml oral suspension PO ONE (16:45)
[2019-01-27 17:20] LABS: LIPASE 182 U/L (73-393)
[2019-01-27 17:22] LABS: URINE HCG NEGATIVE (NEG)
[2019-01-27 17:26] LABS: CLARITY,URINE CLEAR (Clear); COLOR,URINE YELLOW (Yellow); GLUCOSE, URINE NEGATIVE (Neg); KETONES,URINE NEGATIVE (Neg); LEUKOCYTE ESTERASE ,URINE NEGATIVE (Neg); NITRITES, URINE NEGATIVE (Neg); OCCULT BLOOD,URINE NEGATIVE (Neg); PH,URINE 5.5 (4.8-8.0); PROTEIN,URINE NEGATIVE (Neg); UROBILINOGEN,URINE 0.2 E.U/dL (0.2-1.0)
[2019-01-27 17:29] LABS: UA COLLECTION TYPE CLN CATCH MIDSTREAM
[2019-01-27 17:45] LABS: URINE AMPHETAMINE SCREEN NEGATIVE (Neg); URINE BARBITUATE SCREEN NEGATIVE (Neg); URINE BENZODIAZEPINES SCREEN NEGATIVE (Neg); URINE CANNABINOID SCREEN NEGATIVE (Neg); URINE COCAINE SCREEN NEGATIVE (Neg); URINE METHADONE SCREEN NEGATIVE (Neg); URINE OPIATE SCREEN NEGATIVE (Neg); URINE PHENCYCLIDINE SCREEN NEGATIVE (Neg)
[2019-01-27] MEDS ORDERED: PANT-47 PO (18:49)
[2019-01-27] MEDS ORDERED: ONDA4TAB6 PO (18:49)
[2019-01-27 18:59] VITALS: BP 148/81
== END 2019-01-27 19:11 | disposition home or self-care (01) ==
LOC: ER 15:19
DX: R10.13 Epigastric pain (principal); J44.9 Chronic obstructive pulmonary disease, unspecified; Z86.19 Personal history of other infectious and parasitic diseases; Z98.890 Other specified postprocedural states; Z88.0 Allergy status to penicillin; Z88.8 Allergy status to other drugs, medicaments and biological substances; Z79.899 Other long term (current) drug therapy
CPT/HCPCS: 36415; 80053; 80305; 81003; 81025; 83690; 85025; 85610; 96374; 96375; 99283; J0780; J2405

== ENCOUNTER 2019-02-16 11:34 | Emergency (ER) | payer MEDICAID ==
[~2019-02-16] VITALS: Ht 205.7 cm; Wt 65.0 kg
[~2019-02-16 11:34] MED LIST changes: -DOXY100C43 PO; +ONDA4TAB6 PO; +PANT-47 PO
[2019-02-16 11:45] VITALS: BP 119/40
[2019-02-16 12:45] LABS: BASOPHILS # (AUTO) 0.1 X10'3 (0-0.2); BASOPHILS % (AUTO) 0.7 % (0-1); EOSINOPHILS # (AUTO) 0.4 X10'3 (0-0.9); HEMATOCRIT 39.4 % (35.0-45.0); LYMPHOCYTES # (AUTO) 3.7 X10'3 (1.1-4.8); LYMPHOCYTES % (AUTO) 50.7 % (21-51); MEAN CORPUSCULAR HEMOGLOBIN 32.6 PG (27.0-31.0); MEAN PLATELET VOLUME 8.6 FL (7.4-10.4); MONOCYTES # (AUTO) 0.3 X10'3 (0-0.9); MONOCYTES % (AUTO) 4.4 % (2-12); NEUTROPHILS # (AUTO) 2.9 X10'3 (1.8-7.7); NEUTROPHILS % (AUTO) 39.2 % (42-75); PLATELET COUNT 223 X10'3 (140-440); RED BLOOD COUNT 3.98 X10'6 (4.20-5.60); RED CELL DISTRIBUTION WIDTH 14.4 % (11.5-14.5); WHITE BLOOD COUNT 7.4 X10'3 (4.5-11.0)
[2019-02-16 12:54] LABS: ALANINE AMINOTRANSFERASE 201 U/L (12-78); ALBUMIN 3.2 G/DL (3.4-5.0); ALBUMIN/GLOBULIN RATIO 0.9 (1.1-1.5); ALKALINE PHOSPHATASE 88 IU/L (46-116); ANION GAP 7 (8-16); ASPARTATE AMINO TRANSFERASE 138 U/L (10-37); BILIRUBIN,TOTAL 0.2 MG/DL (0.1-1.0); BLOOD UREA NITROGEN 25 MG/DL (7-18); CALCIUM 8.7 MG/DL (8.5-10.1); CHLORIDE 108 MMOL/L (99-107); CREATININE 1.19 MG/DL (0.40-0.90); GLUCOSE 93 MG/DL (70-104); POTASSIUM 4.3 MMOL/L (3.5-5.1); SODIUM 141 MMOL/L (135-145); TOTAL CARBON DIOXIDE 25.9 MMOL/L (24-32); TOTAL PROTEIN 6.9 G/DL (6.4-8.2); eGFR 47 ML/MIN
[2019-02-16] MEDS ORDERED: PRED20TA PO (14:13)
== END 2019-02-16 14:27 | disposition home or self-care (01) ==
LOC: ER 11:34
DX: J44.9 Chronic obstructive pulmonary disease, unspecified (principal); Z56.0 Unemployment, unspecified; Z88.0 Allergy status to penicillin; Z88.8 Allergy status to other drugs, medicaments and biological substances
CPT/HCPCS: 36415; 71046; 80053; 83605; 85025; 87040; 93005; 99284

== ENCOUNTER 2019-03-06 14:00 | Emergency (ER) | payer MEDICAID ==
[~2019-03-06] VITALS: Ht 172.7 cm; Wt 67.6 kg
[2019-03-06] MEDS ORDERED: lidocaine 1.5% w/epinephrine 1:200,000 10ml vial MPF IJ ONE (14:15)
[2019-03-06] MEDS ORDERED: LIDOcaine 1% w/epiNEPHrine 1:200,000 30ml vial IJ ONE (14:25)
[2019-03-06] MEDS ORDERED: TETanus/Pertussis (Acell)/Diphther VAC/PF (Tdap-Adult) 0.5ml syringe IM ONE (14:30)
[2019-03-06] MEDS ORDERED: LIDOcaine 1% w/epiNEPHrine 1:200,000 30ml vial IM ONE (14:30)
[2019-03-06 16:14] VITALS: BP 130/84
[2019-03-06] MEDS ORDERED: IBUP-1984 PO (21:20)
[2019-03-06] MEDS ORDERED: TRAM50TA2 PO (21:25)
== END 2019-03-06 16:17 | disposition home or self-care (01) ==
LOC: ER 14:01
DX: S51.812A Laceration without foreign body of left forearm, initial encounter (principal); J44.9 Chronic obstructive pulmonary disease, unspecified; F41.9 Anxiety disorder, unspecified; K74.60 Unspecified cirrhosis of liver; F32.9 Major depressive disorder, single episode, unspecified; F10.10 Alcohol abuse, uncomplicated; Z88.0 Allergy status to penicillin; Z88.5 Allergy status to narcotic agent; Z88.8 Allergy status to other drugs, medicaments and biological substances; Z79.899 Other long term (current) drug therapy; Z86.19 Personal history of other infectious and parasitic diseases; Z90.89 Acquired absence of other organs; Z56.0 Unemployment, unspecified; X99.1XXA Assault by knife, initial encounter; Y93.89 Activity, other specified; Y92.89 Other specified places as the place of occurrence of the external cause; Y99.8 Other external cause status
CPT/HCPCS: 12002; 90471; 90715; 99283; J3490

== ENCOUNTER 2019-03-06 21:10 | Emergency (ER) | payer MEDICAID ==
[~2019-03-06] VITALS: Ht 175.3 cm; Wt 59.7 kg
[2019-03-06 21:17] VITALS: BP 115/45
[2019-03-06] MEDS ORDERED: IBUP-1984 PO (21:20)
[2019-03-06] MEDS ORDERED: TRAM50TA2 PO (21:25)
== END 2019-03-06 21:45 | disposition home or self-care (01) ==
LOC: ER 21:11
DX: M79.642 Pain in left hand (principal); J44.9 Chronic obstructive pulmonary disease, unspecified; K74.60 Unspecified cirrhosis of liver; F41.9 Anxiety disorder, unspecified; F32.9 Major depressive disorder, single episode, unspecified; Z76.0 Encounter for issue of repeat prescription; Z86.19 Personal history of other infectious and parasitic diseases; Z56.0 Unemployment, unspecified
CPT/HCPCS: 99283

== ENCOUNTER 2019-03-14 15:52 | Emergency (ER) | payer MEDICAID ==
[~2019-03-14] VITALS: Ht 175.3 cm; Wt 63.6 kg
[~2019-03-14 15:52] MED LIST changes: +IBUP-1984 PO; +TRAM50TA2 PO
[2019-03-14 15:57] VITALS: BP 130/82
== END 2019-03-14 16:53 | disposition home or self-care (01) ==
LOC: ER 15:53
DX: S51.812D Laceration without foreign body of left forearm, subsequent encounter (principal); J44.9 Chronic obstructive pulmonary disease, unspecified; Z86.19 Personal history of other infectious and parasitic diseases; Z56.0 Unemployment, unspecified; Z98.890 Other specified postprocedural states; Z88.8 Allergy status to other drugs, medicaments and biological substances; Z88.0 Allergy status to penicillin; Z79.899 Other long term (current) drug therapy; X99.1XXD Assault by knife, subsequent encounter
CPT/HCPCS: 99281

== ENCOUNTER 2019-04-01 10:52 | Emergency (ER) | payer MEDICAID ==
[~2019-04-01] VITALS: Ht 167.6 cm; Wt 72.7 kg
--- NOTE | 2019-04-01 11:09 | NUR ---
CALL TO PT PARTNER CHERRIE, NO ANSWER, MESSAGE LEFT.
--- NOTE | 2019-04-01 11:21 | NUR ---
Dr Wiggins at bedside.
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
--- NOTE | 2019-04-01 11:36 | NUR ---
pt stated took handfull of partners bp and day meds in an attempt to commit suicide. called [facility] to find pt partners bp meds is lisinopril. dr. kearns notified.
[2019-04-01 11:41] LABS: BASOPHILS # (AUTO) 0.1 X10'3 (0-0.2); BASOPHILS % (AUTO) 0.9 % (0-1); EOSINOPHILS # (AUTO) 0.4 X10'3 (0-0.9); EOSINOPHILS % (AUTO) 6.5 % (0-6); HEMOGLOBIN 13.3 g/dl (12.0-16.0); LYMPHOCYTES # (AUTO) 3.4 X10'3 (1.1-4.8); LYMPHOCYTES % (AUTO) 54.7 % (21-51); MEAN CORPUSCULAR HEMOGLOBIN 32.9 PG (27.0-31.0); MEAN CORPUSCULAR HGB CONC 33.3 g/dL (33.0-36.5); MEAN CORPUSCULAR VOLUME 98.9 FL (78-98); MEAN PLATELET VOLUME 7.9 FL (7.4-10.4); MONOCYTES # (AUTO) 0.4 X10'3 (0-0.9); MONOCYTES % (AUTO) 6.1 % (2-12); NEUTROPHILS % (AUTO) 31.8 % (42-75); PLATELET COUNT 178 X10'3 (140-440); RED BLOOD COUNT 4.05 X10'6 (4.20-5.60); RED CELL DISTRIBUTION WIDTH 14.3 % (11.5-14.5); WHITE BLOOD COUNT 6.2 X10'3 (4.5-11.0)
[2019-04-01 11:54] LABS: ALANINE AMINOTRANSFERASE 100 U/L (12-78); ALBUMIN 3.6 G/DL (3.4-5.0); ALBUMIN/GLOBULIN RATIO 1.1 (1.1-1.5); ALKALINE PHOSPHATASE 89 IU/L (46-116); ANION GAP 6 (8-16); ASPARTATE AMINO TRANSFERASE 161 U/L (10-37); BILIRUBIN,TOTAL 0.3 MG/DL (0.1-1.0); BLOOD UREA NITROGEN 16 MG/DL (7-18); BUN/CREATININE RATIO 18.8 (6.6-38.0); CALCIUM 9.1 MG/DL (8.5-10.1); CHLORIDE 109 MMOL/L (99-107); CREATININE 0.85 MG/DL (0.40-0.90); GLUCOSE 82 MG/DL (70-104); SODIUM 141 MMOL/L (135-145); TOTAL CARBON DIOXIDE 25.6 MMOL/L (24-32); TOTAL PROTEIN 6.8 G/DL (6.4-8.2); eGFR 69 ML/MIN
--- NOTE | 2019-04-01 11:54 | NUR ---
PSYCH CONSULT ISSUED CALL BACK
--- NOTE | 2019-04-01 11:55 | NUR ---
CALLED POISON CONTROL. KURTIS STATED TO DO LITHIUM LEVELS Q4H. WATCH FOR QT WIDENING PER LITHIUM OVERDOSE AND QRS WIDENING PER ATARAX OVERDOSE. RECOMMENDED A MINIMUM OF 8HR. OBSERVATION.
[2019-04-01 11:58] LABS: CLARITY,URINE CLOUDY (Clear); COLOR,URINE YELLOW (Yellow); GLUCOSE, URINE NEGATIVE (Neg); KETONES,URINE NEGATIVE (Neg); LEUKOCYTE ESTERASE ,URINE NEGATIVE (Neg); NITRITES, URINE NEGATIVE (Neg); OCCULT BLOOD,URINE TRACE-INTACT (Neg); PH,URINE 5.5 (4.8-8.0); PROTEIN,URINE NEGATIVE (Neg); UA COLLECTION TYPE CLN CATCH MIDSTREAM; UROBILINOGEN,URINE 0.2 E.U/dL (0.2-1.0)
[2019-04-01] MEDS ORDERED: normal saline 1000ml 1,000 ML IV ONE (12:00)
[2019-04-01 12:08] LABS: ACETAMINOPHEN < 2.0 UG/ML (10-30)
[2019-04-01 12:09] LABS: URINE AMPHETAMINE SCREEN NEGATIVE (Neg); URINE BARBITUATE SCREEN NEGATIVE (Neg); URINE BENZODIAZEPINES SCREEN NEGATIVE (Neg); URINE CANNABINOID SCREEN NEGATIVE (Neg); URINE COCAINE SCREEN NEGATIVE (Neg); URINE METHADONE SCREEN NEGATIVE (Neg); URINE OPIATE SCREEN NEGATIVE (Neg); URINE PHENCYCLIDINE SCREEN NEGATIVE (Neg)
[2019-04-01 12:11] LABS: SQUAMOUS EPITHELIAL CELL,UR FEW /LPF (FEW)
[2019-04-01 12:12] LABS: BACTERIA,URINE 4+ /HPF (Neg)
[2019-04-01 12:15] LABS: WBC,URINE 0-4 /HPF (0-4)
[2019-04-01 12:16] LABS: RBC,URINE NONE SEEN /HPF (0-2)
[2019-04-01 12:21] LABS: ETHANOL 0.355 GM/DL (0.0-0.010)
[2019-04-01] MEDS ORDERED: ALBU18HF2 INH (13:43)
[2019-04-01] MEDS ORDERED: TIOT4MIS3 INH (13:43)
[2019-04-01] MEDS ORDERED: LITH300C PO (13:43)
[2019-04-01] MEDS ORDERED: PANT-47 PO (13:43)
[2019-04-01] MEDS ORDERED: LORA10TA7 PO (13:43)
[2019-04-01] MEDS ORDERED: HYDR50TA65 PO (13:43)
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
[2019-04-01] MEDS ORDERED: haloperidol lactate 5mg/ml inj IM ONE (14:40)
[2019-04-01] MEDS ORDERED: diphenhydrAMINE 50 mg/ml inj IM ONE (14:40)
[2019-04-01] MEDS ORDERED: LORazepam 2 mg/ml vial IM ONE (14:40)
--- NOTE | 2019-04-01 15:14 | NUR ---
Val called and spoke with patient. Patient appropiate during phone conversation.
[2019-04-01] MEDS: LORazepam 1 MG tablet PO PRN (15:42)
--- NOTE | 2019-04-01 15:51 | NUR ---
Patient restless and occasionally yelling for no reason. Dr. Bowser consulted. Order given for Ativan 1 mg. PO. Administered as ordered. IM medications had been ordered for patient then discontinued because she agreed to take PO medications. Saline lock in left lower forearm removed. Saline lock in right forearm remains intact.
--- NOTE | 2019-04-01 15:55 | NUR ---
Patient asked what she ingested this AM to get her alcohol level high. Patient replied "Nyquil. I drank two bottles of Nyquil."
--- NOTE | 2019-04-01 16:15 | NUR ---
of patient here to visit. Informed by registration patient was asleep. left and stated she would return later on.
--- NOTE | 2019-04-01 16:43 | NUR ---
Poison Control called for status report on patient. Information given as asked. Poison control requested patient have a repeat [place] level, ALT and AST. Dr. Gannon notified. Orders given for lab draws.
--- NOTE | 2019-04-01 17:13 | NUR ---
Ryder rapp from the lab to perform lab draws per Poison Control. Patient cooperative
--- NOTE | 2019-04-01 18:11 | NUR ---
Patient has visiting her at this time. Continues to ask about her medication. Continue to educate her that her medication will be on hold while here due to posion control being in control and unsure of what medication she took with the interaction of the meds.
--- NOTE | 2019-04-01 19:00 | NUR ---
PATIENT KEEPS COUGHING AND COMPLAINING ABOUT SORE THROAT. ALSO KEEPS STATING SHE WANTS HER HOME MEDICATION. CONTINUE TO EDUCATE PATIENT THAT WE CAN'T GIVE HER ANYTHING DUE TO UNKNOW MEDS TAKEN BY HER. PATIENT STATED UNDERSTANDING
--- NOTE | 2019-04-01 20:00 | NUR ---
PATIENT IV LINE D/C. PATIENT CONTINUES TO COUGH WITH COMPLAINTS HER THROAT WAS SWELLING UP. DID LOOK AT THROAT WITH NO REDNESS OR SWELLING NOTED. LUNGS CLEAR T/O. WILL CONTINUE TO MONITOR.
--- NOTE | 2019-04-01 20:46 | NUR ---
POISON CONTROL CALLING FOR UPDATE. I REPORTED STABLE CURRENT VS, THAT PT IS SLEEPING BUT EASILY AROUSABLE AND ORIENTED AND APPROPRIATE. LABS DRAWN AT 1700, AST, ALT, LITHIUM REPORTED. THEY REQUEST A 2100 LITHIUM LEVEL AND IF SHOWS LEVEL IS DECREASING THEN PT CAN BE CLEARED. OTHERWISE CALL THEM BACK , CONTACT IS MANUEL @ [phone].
--- NOTE | 2019-04-01 21:26 | NUR ---
PATIENT CONTINUE TO COMPLAIN OF NOT FEELING WELL AND WEAKNESS WITH SORE THROAT. TOOK PATIENTS VITALS; 138/69 98.3 92% RA, HR 65. CALLED OVER TO ER TO GET AN ORDER FOR COUGH GTTS PENDING ORDERS.
[2019-04-01] MEDS ORDERED: benzocaine/menthol oral lozeng 1 EACH BOX MM PRN (21:30)
--- NOTE | 2019-04-01 21:58 | NUR ---
PATIENT RESTING NOW. PRN COUGH GTTS AVAIABLE IF SHE WAKES UP.
--- NOTE | 2019-04-01 23:21 | NUR ---
PATIENT RESTING IN BED AT THIS TIME.
--- NOTE | 2019-04-01 23:42 | NUR ---
Posion control called and reviewed lithium level. Patient now has been cleared from Posion control. Addendum: 04/01/19 at 2344 by ALIA Cleared by posion control at this time due to her lithium levels trending down and patient being stable. Spoke with
--- NOTE | 2019-04-02 00:05 | NUR ---
Patient resting well in bed. No complaints of pain. Will continue to monitor.
--- NOTE | 2019-04-02 01:00 | NUR ---
Patient stable at this time. Resting in bed with no complaints at this time.
--- NOTE | 2019-04-02 02:17 | NUR ---
Patient got up to use the bathroom. Offered to give patient a cough gtt and she declined to take.
--- NOTE | 2019-04-02 03:08 | NUR ---
Up to bathroom at this time. Stable with nonproductive dry cough off and on.
--- NOTE | 2019-04-02 04:10 | NUR ---
Patient continues to be sleeping at this time.
--- NOTE | 2019-04-02 05:28 | NUR ---
Patient continues to be sleeping at this time.
--- NOTE | 2019-04-02 06:30 | NUR ---
Pt lying in bed, appears to be sleeping.
--- NOTE | 2019-04-02 07:34 | NUR ---
Gave patient more ice water. Patient drank 600 ml out of the pervious water pitcher.
[2019-04-02 08:17] VITALS: BP 156/80
[2019-04-02] MEDS: LORazepam 1 MG tablet PO PRN (09:09)
--- NOTE | 2019-04-02 09:09 | NUR ---
Pt has moderate bilat hand/finger tremors, stated, "I can't stop shaking." Asked pt if she thought she may be having withdrawals, pt did not think so. Asked pt if she had been shaking prior to event that brought her here, she replied, "yes but not like this." Medicated pt with prn Ativan 1 mg PO, also gave cough/throat lozenge for intermittent moist cough.
--- NOTE | 2019-04-02 09:20 | NUR ---
Pt being evaluated by SCM.
--- NOTE | 2019-04-02 10:45 | NUR ---
Pt stated loudly "Oh my God!" while lying in bed, asked pt what was the matter, pt stated that, "my mind won't quit racing." Jessica sales and business development manager from [facility] called and reported that Farhan DODGE would see pt today about restarting medications, notifed pt that this was in the works, pt expressed thanks.
--- NOTE | 2019-04-02 11:00 | NUR ---
Christine from [facility] states she will place pt on a 5150.
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
--- NOTE | 2019-04-02 12:12 | NUR ---
Notified MD of pt's moist cough and expiratory wheezes throughout, obtained order for albuterol neb tx X 1.
[2019-04-02] MEDS ORDERED: albuterol 2.5 MG/3 ML nebule NEB ONE (12:15)
[2019-04-02] MEDS ORDERED: loratadine 10mg tablet PO SCH (12:21)
[2019-04-02] MEDS ORDERED: pantoprazole 40mg Tablet.DR PO SCH (12:28)
[2019-04-02] MEDS ORDERED: albuterol 2.5 MG/3 ML nebule NEB PRN (12:30)
[2019-04-02] MEDS ORDERED: lithium carbonate 150mg capsule PO SCH (12:30)
--- NOTE | 2019-04-02 13:13 | NUR ---
Rosaura rodriguez in [facility] - 04/02/19 at 1313 by RAJ Pt has been acce
--- NOTE | 2019-04-02 13:13 | NUR ---
Pt has been accepted at [facility], [place] by MADDISON Curiel, pecan picker time will be 1330.
[2019-04-02] MEDS ORDERED: hydrOXYzine 25 MG tablet PO SCH (20:00)
[2019-04-03] MEDS ORDERED: OLODATEROL IH SCH (08:00)
[2019-04-03] MEDS ORDERED: non-formulary drug (Tiotropium Br/Olodaterol HCl (Stiolto Respimat Inhal Spray) 2 PUFFS) INH SCH (08:00)
[2019-04-03] MEDS ORDERED: TIOTROPIUM IH SCH (08:00)
[2019-04-03] MEDS ORDERED: [UNRECOGNIZED DRUG - OTHER] IH SCH (08:00)
== END 2019-04-02 13:47 ==
LOC: ER 10:53
DX: T50.902A Poisoning by unspecified drugs, medicaments and biological substances, intentional self-harm, initial encounter (principal); T14.91XA Suicide attempt, initial encounter; F10.129 Alcohol abuse with intoxication, unspecified; J44.9 Chronic obstructive pulmonary disease, unspecified; Z86.19 Personal history of other infectious and parasitic diseases; Z98.890 Other specified postprocedural states; Z56.0 Unemployment, unspecified; Z88.0 Allergy status to penicillin; Z88.8 Allergy status to other drugs, medicaments and biological substances; Z79.899 Other long term (current) drug therapy; X83.8XXA Intentional self-harm by other specified means, initial encounter; Y93.89 Activity, other specified; Y92.89 Other specified places as the place of occurrence of the external cause; Y99.8 Other external cause status; Y90.0 Blood alcohol level of less than 20 mg/100 ml
CPT/HCPCS: 36415; 80053; 80178; 80305; 80320; 80329; 81001; 84443; 84450; 84460; 85025; 93005; 96360; 99284; J7030

== ENCOUNTER 2019-04-20 20:05 | Emergency (ER) | payer MEDICAID ==
[~2019-04-20] VITALS: Ht 175.3 cm; Wt 62.7 kg
[~2019-04-20 20:05] MED LIST changes: +ALBU18HF2 INH; -BECL8.7A3 IH; -COM5T PO; -COMIN IH; -DIPH25CA83 PO; -FOLI-43 PO; -HYDR-4383 PO; -HYDR25CA PO; +HYDR50TA65 PO; -IBUP-1984 PO; -IBUP-1986 PO; +LITH300C PO; +LORA10TA7 PO; -METH4TAB81 PO; -MUPI15CR TOP; -OLAN5TAB5 PO; -ONDA4TAB6 PO; -PRED20TA PO; -TIOT18CA7 IH; +TIOT4MIS3 INH; -TRAM50TA2 PO; -VAL5T PO; -[UNRECOGNIZED DRUG - CODE] PO
[2019-04-20] MEDS ORDERED: traMADol 50MG tablet PO ONE (21:30)
[2019-04-20] MEDS ORDERED: TRAM50TA2 PO (21:30)
[2019-04-20 21:49] VITALS: BP 130/75
== END 2019-04-20 21:51 | disposition home or self-care (01) ==
LOC: ER 20:06
DX: G89.29 Other chronic pain (principal); M25.512 Pain in left shoulder; J44.9 Chronic obstructive pulmonary disease, unspecified; Z88.0 Allergy status to penicillin; Z88.8 Allergy status to other drugs, medicaments and biological substances; Z79.899 Other long term (current) drug therapy; Z56.0 Unemployment, unspecified
CPT/HCPCS: 99283

== ENCOUNTER 2019-06-06 22:02 | Emergency (ER) | payer MEDICAID ==
[~2019-06-06] VITALS: Ht 175.3 cm; Wt 63.6 kg
[~2019-06-06 22:02] MED LIST changes: +HYDR-4383 PO; +ONDA4TAB6 PO
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
--- NOTE | 2019-06-06 23:09 | NUR ---
Pt denies S/I @ this time. She reports it was a "thing of the moment." Pt denies A/V hallucinations. Pt is currently in an ETOH rehab program @ [facility]. Pt reports ETOH consumption earlier today.
--- NOTE | 2019-06-06 23:10 | NUR ---
Pt denies s/i @ this itme saying "I was just really upset when I came in and needed you guys help. I'm better now. I don't want to kill myself. I want to live. " Pt denies audio/visual hallucinations @ this time. Pt reports being minh Addendum: 06/07/19 at 0025 by COLE in an ETOH rehab program with [facility] even though she consumed " one wine cooler" earlier today. Pt reports a strong support system affiliated with [facility] program and has been in contact with some of them while in the ED awaiting disposition.
[2019-06-06 23:40] LABS: BASOPHILS % (AUTO) 0.3 % (0-1); EOSINOPHILS # (AUTO) 0.4 X10'3 (0-0.9); EOSINOPHILS % (AUTO) 5.7 % (0-6); HEMATOCRIT 39.2 % (35.0-45.0); LYMPHOCYTES # (AUTO) 3.8 X10'3 (1.1-4.8); LYMPHOCYTES % (AUTO) 53.8 % (21-51); MEAN CORPUSCULAR HEMOGLOBIN 33.1 PG (27.0-31.0); MEAN CORPUSCULAR HGB CONC 33.2 g/dL (33.0-36.5); MEAN CORPUSCULAR VOLUME 99.8 FL (78-98); MEAN PLATELET VOLUME 8.6 FL (7.4-10.4); MONOCYTES # (AUTO) 0.6 X10'3 (0-0.9); MONOCYTES % (AUTO) 8.7 % (2-12); NEUTROPHILS # (AUTO) 2.2 X10'3 (1.8-7.7); NEUTROPHILS % (AUTO) 31.5 % (42-75); PLATELET COUNT 168 X10'3 (140-440); RED BLOOD COUNT 3.92 X10'6 (4.20-5.60); RED CELL DISTRIBUTION WIDTH 15.1 % (11.5-14.5)
--- NOTE | 2019-06-06 23:40 | NUR ---
[employer] engaged with pt. Addendum: 06/07/19 at 0012 by COLE [id number].
[2019-06-06 23:53] LABS: ALANINE AMINOTRANSFERASE 77 U/L (12-78); ALBUMIN 3.3 G/DL (3.4-5.0); ALKALINE PHOSPHATASE 88 IU/L (46-116); ANION GAP 10 (8-16); ASPARTATE AMINO TRANSFERASE 96 U/L (10-37); BILIRUBIN,TOTAL 0.2 MG/DL (0.1-1.0); BLOOD UREA NITROGEN 30 MG/DL (7-18); BUN/CREATININE RATIO 24.6 (6.6-38.0); CALCIUM 8.6 MG/DL (8.5-10.1); CHLORIDE 104 MMOL/L (99-107); CREATININE 1.22 MG/DL (0.40-0.90); GLUCOSE 89 MG/DL (70-104); POTASSIUM 4.4 MMOL/L (3.5-5.1); SODIUM 139 MMOL/L (135-145); TOTAL CARBON DIOXIDE 25.1 MMOL/L (24-32); TOTAL PROTEIN 6.6 G/DL (6.4-8.2); eGFR 46 ML/MIN
[2019-06-06 23:58] LABS: CLARITY,URINE CLEAR (Clear); COLOR,URINE YELLOW (Yellow); GLUCOSE, URINE NEGATIVE (Neg); KETONES,URINE NEGATIVE (Neg); LEUKOCYTE ESTERASE ,URINE NEGATIVE (Neg); NITRITES, URINE NEGATIVE (Neg); OCCULT BLOOD,URINE NEGATIVE (Neg); PROTEIN,URINE NEGATIVE (Neg); UROBILINOGEN,URINE 0.2 E.U/dL (0.2-1.0)
[2019-06-07] LABS: UA COLLECTION TYPE VOIDED
[2019-06-07 00:01] LABS: ETHANOL 0.145 GM/DL (0.0-0.010)
[2019-06-07 00:27] VITALS: BP 124/61
[2019-06-07 01:55] LABS: TOTAL CELLS COUNTED 100
[2019-06-07 01:56] LABS: PLATELET ESTIMATE NORMAL
[2019-06-07 10:17] LABS: URINE AMPHETAMINE SCREEN NEGATIVE (Neg); URINE BARBITUATE SCREEN NEGATIVE (Neg); URINE BENZODIAZEPINES SCREEN NEGATIVE (Neg); URINE CANNABINOID SCREEN NEGATIVE (Neg); URINE COCAINE SCREEN NEGATIVE (Neg); URINE METHADONE SCREEN NEGATIVE (Neg); URINE OPIATE SCREEN NEGATIVE (Neg); URINE PHENCYCLIDINE SCREEN NEGATIVE (Neg)
== END 2019-06-07 00:30 | disposition home or self-care (01) ==
LOC: ER 22:03 → EEVIPCON 22:03 → ER 06-07 00:30
DX: S80.12XA Contusion of left lower leg, initial encounter (principal); S80.11XA Contusion of right lower leg, initial encounter; S30.1XXA Contusion of abdominal wall, initial encounter; S40.022A Contusion of left upper arm, initial encounter; S40.021A Contusion of right upper arm, initial encounter; R45.6 Violent behavior; G89.29 Other chronic pain; F10.99 Alcohol use, unspecified with unspecified alcohol-induced disorder; J44.9 Chronic obstructive pulmonary disease, unspecified; F41.9 Anxiety disorder, unspecified; F31.9 Bipolar disorder, unspecified; Z86.19 Personal history of other infectious and parasitic diseases; Z98.890 Other specified postprocedural states; Z56.0 Unemployment, unspecified; Z88.8 Allergy status to other drugs, medicaments and biological substances; Z88.0 Allergy status to penicillin; Z88.6 Allergy status to analgesic agent; Z79.899 Other long term (current) drug therapy; Y04.8XXA Assault by other bodily force, initial encounter; Y93.89 Activity, other specified; Y92.89 Other specified places as the place of occurrence of the external cause; Y99.8 Other external cause status; Y90.9 Presence of alcohol in blood, level not specified
CPT/HCPCS: 36415; 80053; 80305; 80320; 81003; 84443; 85025; 85610; 99283

== ENCOUNTER 2019-06-10 11:47 | Emergency (ER) | payer MEDICAID ==
[~2019-06-10] VITALS: Ht 175.3 cm; Wt 63.3 kg
[2019-06-10 11:51] VITALS: BP 149/83
== END 2019-06-10 13:18 | disposition home or self-care (01) ==
LOC: ER 11:48
DX: F10.10 Alcohol abuse, uncomplicated (principal); J44.9 Chronic obstructive pulmonary disease, unspecified; F41.9 Anxiety disorder, unspecified; F31.9 Bipolar disorder, unspecified; Z02.89 Encounter for other administrative examinations; Z88.0 Allergy status to penicillin; Z88.8 Allergy status to other drugs, medicaments and biological substances; Z79.899 Other long term (current) drug therapy; Z98.890 Other specified postprocedural states; Z56.0 Unemployment, unspecified
CPT/HCPCS: 99281

== ENCOUNTER 2019-06-26 19:29 | Emergency (ER) | payer MEDICAID ==
[~2019-06-26] VITALS: Ht 175.3 cm; Wt 67.4 kg
[2019-06-26 19:32] VITALS: BP 128/64
[2019-06-26] MEDS ORDERED: HYDROcodone/acetaminophen 10/325mg tab PO ONE (20:15)
[2019-06-26] MEDS ORDERED: ketorolac trometh. 30mg/ml inj. IM ONE (20:15)
[2019-06-26] MEDS ORDERED: HYDR-4353 PO (20:18)
== END 2019-06-26 20:41 | disposition home or self-care (01) ==
LOC: ER 19:30
DX: S40.012A Contusion of left shoulder, initial encounter (principal); J44.9 Chronic obstructive pulmonary disease, unspecified; F41.9 Anxiety disorder, unspecified; F31.9 Bipolar disorder, unspecified; Z88.0 Allergy status to penicillin; Z88.8 Allergy status to other drugs, medicaments and biological substances; Z79.899 Other long term (current) drug therapy; Z56.0 Unemployment, unspecified; W22.09XA Striking against other stationary object, initial encounter; Y93.89 Activity, other specified; Y92.89 Other specified places as the place of occurrence of the external cause; Y99.8 Other external cause status
CPT/HCPCS: 96372; 99283; J1885

== ENCOUNTER 2019-07-14 08:14 | Emergency (ER) | payer MEDICAID ==
[~2019-07-14] VITALS: Ht 175.3 cm; Wt 69.3 kg
[~2019-07-14 08:14] MED LIST changes: +HYDR-4353 PO
[2019-07-14 08:21] VITALS: BP 128/78
--- NOTE | 2019-07-14 08:58 | NUR ---
PT. REFUSED TO GET INTO GOWN. IT HURTS HER SHOULDER TO TAKE SHIRT OFF.
[2019-07-14] MEDS ORDERED: morphine 4 MG/ML inj SYRINge IM ONE (10:10)
== END 2019-07-14 10:27 | disposition home or self-care (01) ==
LOC: ER 08:14
DX: M25.512 Pain in left shoulder (principal); G89.29 Other chronic pain; J44.9 Chronic obstructive pulmonary disease, unspecified; F41.9 Anxiety disorder, unspecified; F31.9 Bipolar disorder, unspecified; F17.200 Nicotine dependence, unspecified, uncomplicated; Z86.19 Personal history of other infectious and parasitic diseases; Z98.890 Other specified postprocedural states; Z56.0 Unemployment, unspecified; Z88.0 Allergy status to penicillin; Z88.8 Allergy status to other drugs, medicaments and biological substances; Z88.6 Allergy status to analgesic agent; Z79.899 Other long term (current) drug therapy
CPT/HCPCS: 96372; 99283; J2270

== ENCOUNTER 2019-08-12 08:45 | Emergency (ER) | payer MEDICAID ==
[~2019-08-12] VITALS: Ht 175.3 cm; Wt 70.4 kg
[~2019-08-12 08:45] MED LIST changes: -HYDR-4353 PO
[2019-08-12] MEDS ORDERED: ketorolac tromethamine 15mg/ml inj. IM ONE (09:00)
[2019-08-12 09:04] VITALS: BP 118/77
== END 2019-08-12 09:36 | disposition home or self-care (01) ==
LOC: ER 08:45
DX: G89.29 Other chronic pain (principal); M25.512 Pain in left shoulder; J44.9 Chronic obstructive pulmonary disease, unspecified; Z56.0 Unemployment, unspecified; Z88.8 Allergy status to other drugs, medicaments and biological substances; Z88.0 Allergy status to penicillin; Z79.899 Other long term (current) drug therapy
CPT/HCPCS: 96372; 99283; J1885

== ENCOUNTER 2019-09-19 20:43 | Emergency (ER) | payer MEDICAID ==
[~2019-09-19] VITALS: Ht 175.3 cm; Wt 86.3 kg
[2019-09-19 20:47] VITALS: BP 155/103
[2019-09-19] MEDS ORDERED: TIOT4MIS3 INH (21:04)
[2019-09-20] MEDS ORDERED: TIOT4MIS3 INH (16:02)
== END 2019-09-19 21:41 | disposition home or self-care (01) ==
LOC: ER 21:00
DX: J02.9 Acute pharyngitis, unspecified (principal); J44.9 Chronic obstructive pulmonary disease, unspecified; G89.29 Other chronic pain; F41.9 Anxiety disorder, unspecified; F31.9 Bipolar disorder, unspecified; F17.200 Nicotine dependence, unspecified, uncomplicated; F10.99 Alcohol use, unspecified with unspecified alcohol-induced disorder; Z76.0 Encounter for issue of repeat prescription; Z86.19 Personal history of other infectious and parasitic diseases; Z56.0 Unemployment, unspecified; Z98.890 Other specified postprocedural states; Z88.8 Allergy status to other drugs, medicaments and biological substances; Z88.0 Allergy status to penicillin; Z79.899 Other long term (current) drug therapy; Y90.9 Presence of alcohol in blood, level not specified
CPT/HCPCS: 93005; 99283

== ENCOUNTER 2019-09-20 14:43 | Emergency (ER) | payer MEDICAID ==
[~2019-09-20] VITALS: Ht 175.3 cm; Wt 75.8 kg
[2019-09-20] MEDS ORDERED: ipratropium/albuterol 3ml nebule NEB ONE (15:30)
[2019-09-20] MEDS ORDERED: TIOT4MIS3 INH (16:02)
[2019-09-20 16:20] VITALS: BP 161/95
== END 2019-09-20 16:22 | disposition home or self-care (01) ==
LOC: ER 14:44
DX: J98.01 Acute bronchospasm (principal); J44.9 Chronic obstructive pulmonary disease, unspecified; G89.29 Other chronic pain; Z56.0 Unemployment, unspecified; Z86.19 Personal history of other infectious and parasitic diseases; Z79.899 Other long term (current) drug therapy; Z88.0 Allergy status to penicillin
CPT/HCPCS: 93005; 94640; 94760; 99283

== ENCOUNTER 2019-12-21 20:35 | Emergency (ER) | payer MEDICAID ==
[~2019-12-21] VITALS: Ht 175.3 cm; Wt 85.0 kg
[~2019-12-21 20:35] MED LIST changes: +CALC-1051 PO; -HYDR-4383 PO; +HYDR25TA4 PO; -LITH300C PO; +MELO-100 PO; +MIRT15TA PO; -ONDA4TAB6 PO; -PANT-47 PO; +PRAZ5CAP PO; +PROP60CA37 PO; +ROPI0.252 PO; -TIOT4MIS3 INH
--- NOTE | 2019-12-21 21:10 | NUR ---
PT DOES NOT WANT AN IV UNTIL ABSOLUTELY NECESSARY. PT HAS NO VISIBLE SIGNS OF RESPIRATORY DISTRESS. SHE IS 92% ON RA.
[2019-12-21 21:15] LABS: BASOPHILS % (AUTO) 0.6 % (0-1); EOSINOPHILS # (AUTO) 0.7 X10'3 (0-0.9); HEMATOCRIT 40.3 % (35.0-45.0); HEMOGLOBIN 13.7 g/dl (12.0-16.0); LYMPHOCYTES # (AUTO) 2.4 X10'3 (1.1-4.8); LYMPHOCYTES % (AUTO) 32.9 % (21-51); MEAN CORPUSCULAR HEMOGLOBIN 32.6 PG (27.0-31.0); MEAN CORPUSCULAR HGB CONC 34.1 g/dL (33.0-36.5); MEAN CORPUSCULAR VOLUME 95.6 FL (78-98); MEAN PLATELET VOLUME 8.8 FL (7.4-10.4); MONOCYTES # (AUTO) 0.8 X10'3 (0-0.9); MONOCYTES % (AUTO) 11.4 % (2-12); NEUTROPHILS # (AUTO) 3.3 X10'3 (1.8-7.7); NEUTROPHILS % (AUTO) 45.1 % (42-75); PLATELET COUNT 192 X10'3 (140-440); RED BLOOD COUNT 4.21 X10'6 (4.20-5.60); RED CELL DISTRIBUTION WIDTH 14.4 % (11.5-14.5); WHITE BLOOD COUNT 7.4 X10'3 (4.5-11.0)
[2019-12-21 21:31] LABS: ALANINE AMINOTRANSFERASE 33 U/L (12-78); ALBUMIN 3.7 G/DL (3.4-5.0); ALBUMIN/GLOBULIN RATIO 0.9 (1.1-1.5); ALKALINE PHOSPHATASE 131 IU/L (46-116); ANION GAP 8 (8-16); ASPARTATE AMINO TRANSFERASE 37 U/L (10-37); BILIRUBIN,TOTAL 0.2 MG/DL (0.1-1.0); BLOOD UREA NITROGEN 29 MG/DL (7-18); CALCIUM 9.9 MG/DL (8.5-10.1); CHLORIDE 101 MMOL/L (99-107); CREATININE 0.88 MG/DL (0.40-0.90); GLUCOSE 121 MG/DL (70-104); POTASSIUM 3.7 MMOL/L (3.5-5.1); SODIUM 142 MMOL/L (135-145); TOTAL CARBON DIOXIDE 33.3 MMOL/L (24-32); TOTAL PROTEIN 7.7 G/DL (6.4-8.2); eGFR 66 ML/MIN
--- NOTE | 2019-12-21 21:49 | NUR ---
dr. huber at bedside
[2019-12-21] MEDS ORDERED: ipratropium 0.5 MG/2.5ML nebule IH ONE (21:55)
[2019-12-21] MEDS ORDERED: albuterol 2.5 MG/3 ML nebule CONTNEB PRN (21:55)
[2019-12-21] MEDS ORDERED: BENZ-16 PO (22:08)
[2019-12-21] MEDS ORDERED: morphine 4 MG/ML inj SYRINge IM ONE (22:45)
[2019-12-21 23:13] VITALS: BP 103/69
[2019-12-23] MEDS ORDERED: ROPI1TAB4 PO (11:09)
== END 2019-12-21 23:16 | disposition home or self-care (01) ==
LOC: ER 22:37
DX: J44.1 Chronic obstructive pulmonary disease with (acute) exacerbation (principal); G89.29 Other chronic pain; M25.512 Pain in left shoulder; F31.9 Bipolar disorder, unspecified; F41.9 Anxiety disorder, unspecified; F17.200 Nicotine dependence, unspecified, uncomplicated; Z56.0 Unemployment, unspecified; Z87.19 Personal history of other diseases of the digestive system; Z86.19 Personal history of other infectious and parasitic diseases; Z88.0 Allergy status to penicillin; Z88.8 Allergy status to other drugs, medicaments and biological substances; Z79.899 Other long term (current) drug therapy
CPT/HCPCS: 36415; 71045; 80053; 84484; 85025; 93005; 94644; 96372; 99285; J2270; 94760

== ENCOUNTER 2019-12-24 05:49 | Inpatient (IN) | payer MEDICAID ==
[2019-12-15 16:27] LABS: BASOPHILS # (AUTO) 0.1 X10'3 (0-0.2); BASOPHILS % (AUTO) 1.1 % (0-1); EOSINOPHILS # (AUTO) 0.6 X10'3 (0-0.9); EOSINOPHILS % (AUTO) 7.6 % (0-6); LYMPHOCYTES # (AUTO) 2.5 X10'3 (1.1-4.8); LYMPHOCYTES % (AUTO) 33.9 % (21-51); MEAN CORPUSCULAR HEMOGLOBIN 32.4 PG (27.0-31.0); MEAN CORPUSCULAR HGB CONC 33.7 g/dL (33.0-36.5); MEAN CORPUSCULAR VOLUME 96.3 FL (78-98); MEAN PLATELET VOLUME 9.3 FL (7.4-10.4); MONOCYTES # (AUTO) 0.7 X10'3 (0-0.9); MONOCYTES % (AUTO) 8.9 % (2-12); NEUTROPHILS # (AUTO) 3.6 X10'3 (1.8-7.7); NEUTROPHILS % (AUTO) 48.5 % (42-75); PRE OP HEMATOCRIT 42.5 % (35.0-45.0); PRE OP HEMOGLOBIN 14.3 g/dL (12.0-16.0); PRE OP PLATELET COUNT 209 X10'3 (140-440); RED BLOOD COUNT 4.42 X10'6 (4.20-5.60); RED CELL DISTRIBUTION WIDTH 14.5 % (11.5-14.5)
[2019-12-15 16:32] LABS: PRE OP INR 0.9 INR; PRE OP PROTIME 9.8 SECONDS (9.0-12.0)
[2019-12-15 16:47] LABS: ALBUMIN 3.7 G/DL (3.4-5.0); ALBUMIN/GLOBULIN RATIO 0.9 (1.1-1.5); ALKALINE PHOSPHATASE 114 IU/L (46-116); BLOOD UREA NITROGEN 25 MG/DL (7-18); BUN/CREATININE RATIO 23.8 (6.6-38.0); CALCIUM 9.9 MG/DL (8.5-10.1); CHLORIDE 103 MMOL/L (99-107); CREATININE 1.05 MG/DL (0.40-0.90); PRE OP ALT 41 U/L (30-65); PRE OP ANION GAP 7 (8-16); PRE OP AST 39 U/L (10-37); PRE OP BILIRUB, TOTAL 0.3 MG/DL (0.0-1.0); PRE OP GLUCOSE 81 MG/DL (70-104); PRE OP POTASSIUM 3.9 MMOL/L (3.4-5.1); PRE OP SODIUM 141 MMOL/L (135-145); TOTAL CARBON DIOXIDE 31.1 MMOL/L (24-32); TOTAL PROTEIN 7.8 G/DL (6.4-8.2); eGFR 54 ML/MIN
[~2019-12-24] VITALS: Ht 175.3 cm; Wt 79.4 kg
[~2019-12-24 05:49] MED LIST changes: -ROPI0.252 PO; +ROPI1TAB4 PO; +albuterol 2.5 MG/3 ML nebule NEB ONE; +cefazolin/dext.iso 2gm/100ml 100 ML IV ONE; +famotidine 10mg tablet PO ONE; +ringers solution, lacted 1,000 ML IV SCH; +tranexamic acid inj. 790 MG in normal saline 100ml IV soln 100 ML IV ONE; +vancomycin inj 1,500 MG in normal saline 300ml IV soln IV ONE
--- NOTE | 2019-12-24 06:00 | NUR ---
PT ARRIVED FOR SURGERY, UPON EXAMINATION IT WAS NOTED THERE ARE SEVERAL SORES ON OPERATIVE SHOULDER WHERE INCISION SITE WOULD BE. DR KEYS MADE AWARE, SURGERY CANCELLED. PT INFORMED TO CALL DR KEYS OFFICE TO RESCHEDULE ONCE SORES ARE HEALED, PT AND SPOUSE VERBALIZED UNDERSTANDING. AMBULATED SELF TO PERSONAL VEHICLE AND HOME.
[2019-12-24] MEDS ORDERED: tranexamic acid inj. 790 MG in normal saline 100ml IV soln 100 ML IV ONE (07:30)
== END 2019-12-24 06:40 | disposition home or self-care (01) | DRG 351 ==
LOC: PAS IN 05:49 → EDSTATUS 07:30
PROVIDERS: ADMIT Orthopaedic Surgery; ATTEND Orthopaedic Surgery
DX: M19.012 Primary osteoarthritis, left shoulder (principal); B19.20 Unspecified viral hepatitis C without hepatic coma; F32.9 Major depressive disorder, single episode, unspecified; F41.9 Anxiety disorder, unspecified; M25.512 Pain in left shoulder; J45.909 Unspecified asthma, uncomplicated; I10 Essential (primary) hypertension
CPT/HCPCS: 36415; 80053; 85025; 85610; 85730; 87081; J3370; J7120

== ENCOUNTER 2020-01-11 07:30 | Inpatient (IN) | payer MEDICAID ==
[2020-01-06 11:15] LABS: BASOPHILS % (AUTO) 0.5 % (0-1); EOSINOPHILS # (AUTO) 0.3 X10'3 (0-0.9); EOSINOPHILS % (AUTO) 4.1 % (0-6); LYMPHOCYTES # (AUTO) 1.9 X10'3 (1.1-4.8); LYMPHOCYTES % (AUTO) 24.7 % (21-51); MEAN CORPUSCULAR HEMOGLOBIN 32.5 PG (27.0-31.0); MEAN CORPUSCULAR HGB CONC 34.4 g/dL (33.0-36.5); MEAN CORPUSCULAR VOLUME 94.5 FL (78-98); MEAN PLATELET VOLUME 7.8 FL (7.4-10.4); MONOCYTES # (AUTO) 0.5 X10'3 (0-0.9); MONOCYTES % (AUTO) 7.1 % (2-12); NEUTROPHILS # (AUTO) 4.9 X10'3 (1.8-7.7); NEUTROPHILS % (AUTO) 63.6 % (42-75); PRE OP HEMATOCRIT 41.9 % (35.0-45.0); PRE OP HEMOGLOBIN 14.4 g/dL (12.0-16.0); PRE OP PLATELET COUNT 198 X10'3 (140-440); RED BLOOD COUNT 4.44 X10'6 (4.20-5.60); RED CELL DISTRIBUTION WIDTH 14.2 % (11.5-14.5)
[2020-01-06 11:22] LABS: PRE OP INR 0.9 INR; PRE OP PROTIME 9.7 SECONDS (9.0-12.0)
[2020-01-06 11:24] LABS: ALBUMIN 3.2 G/DL (3.4-5.0); ALBUMIN/GLOBULIN RATIO 0.9 (1.1-1.5); ALKALINE PHOSPHATASE 109 IU/L (46-116); BLOOD UREA NITROGEN 16 MG/DL (7-18); CALCIUM 9.3 MG/DL (8.5-10.1); CHLORIDE 97 MMOL/L (99-107); CREATININE 0.89 MG/DL (0.40-0.90); PRE OP ALT 30 U/L (30-65); PRE OP ANION GAP 4 (8-16); PRE OP AST 48 U/L (10-37); PRE OP BILIRUB, TOTAL 0.5 MG/DL (0.0-1.0); PRE OP GLUCOSE 120 MG/DL (70-104); PRE OP POTASSIUM 3.4 MMOL/L (3.4-5.1); PRE OP SODIUM 135 MMOL/L (135-145); TOTAL CARBON DIOXIDE 33.8 MMOL/L (24-32); TOTAL PROTEIN 6.8 G/DL (6.4-8.2); eGFR 65 ML/MIN
[2020-01-11] VITALS (21 sets, daily range): BP systolic 113–143; BP diastolic 62–81
[~2020-01-11] VITALS: Ht 172.7 cm; Wt 78.2 kg
[~2020-01-11 07:30] MED LIST changes: +CHOL10006 PO; +CYCL-145 PO; +DOCUMENT DATE & TIME OF BETA-BLOCKER PO ONE; +PROP20TA6 PO; -PROP60CA37 PO; -ROPI1TAB4 PO; +ROPI1TAB6 PO; -cefazolin/dext.iso 2gm/100ml 100 ML IV ONE; +cefazolin/dext.iso 2gm/50ml 50 ML IV ONE; -famotidine 10mg tablet PO ONE; +famotidine 20mg tablet PO ONE; -tranexamic acid inj. 790 MG in normal saline 100ml IV soln 100 ML IV ONE; +tranexamic acid inj. 890 MG in normal saline 100ml IV soln 100 ML IV ONE
[2020-01-11] MEDS ORDERED: LIDOcaine 1% (10mg/ml) 2ml vial ONE (10:42)
[2020-01-11] MEDS ORDERED: ipratropium/albuterol 3ml nebule NEB PRN (11:10)
[2020-01-11] MEDS ORDERED: sevoflurane 250ml liquid IH ONE (12:04)
[2020-01-11] MEDS ORDERED: MIDAZolam 5mg/5ml vial ONE (12:09)
[2020-01-11] MEDS ORDERED: fentaNYL/PF 50MCG/1 ML 2ML syringe ONE (12:09)
[2020-01-11] MEDS ORDERED: ROPIVAcaine 0.5% (5mg/ml) 30ml vial ONE ×2 (12:13→12:57)
[2020-01-11] MEDS ORDERED: propofol inj 20 ML IV ONE (12:13)
[2020-01-11] MEDS ORDERED: ketorolac trometh. 30mg/ml inj. ONE (12:57)
[2020-01-11] MEDS ORDERED: ROPIVAcaine 0.2%/PF PUMP/bolus 550 ML INTERSCALE SCH (13:38)
[2020-01-11] MEDS ORDERED: ringers solution, lacted 1,000 ML IV SCH (13:38)
[2020-01-11] MEDS ORDERED: morphine 2 MG/ML inj. syringe IV PRN (13:40)
[2020-01-11] MEDS ORDERED: ondansetron/PF 4mg/2ml inj IV PRN ×2 (13:40→15:20)
[2020-01-11] MEDS ORDERED: meperidine/PF 25mg/ml syringe IV PRN ×3 (13:40)
[2020-01-11] MEDS ORDERED: proCHLORperazine 10 MG/2 ml inj IV PRN (13:40)
[2020-01-11] MEDS ORDERED: morphine 4 MG/ML inj SYRINge IV PRN (13:40)
[2020-01-11] MEDS ORDERED: ROPIVAcaine 0.2% (10 MG/5 ML) BOLUS INJECTION INTERSCALE PRN (13:40)
--- NOTE | 2020-01-11 15:01 | NUR ---
Received from OR via , accompanied by Anesthesiologist DR DE LA O and report given by Anesthesiolgist. AWAKENS TO VOICE. VITALS STABLE. DRESSING DI. JOVANY PAIN. LUE IN SIMPLE SLING. FINGERS WARM AND PINK.
[2020-01-11] MEDS ORDERED: bisacodyl 10mg suppository rectal RC PRN (15:20)
[2020-01-11] MEDS ORDERED: HYDROcodone/acetaminophen 10/325mg tab PO PRN (15:20)
[2020-01-11] MEDS ORDERED: acetaminophen 325mg tablet PO PRN ×2 (15:20)
[2020-01-11] MEDS ORDERED: diphenhydrAMINE 25mg capsule PO PRN ×2 (15:20)
[2020-01-11] MEDS ORDERED: magnesium hydroxide 30ml (MOM) UD suspension PO PRN (15:20)
[2020-01-11] MEDS ORDERED: HYDROmorphone inj. 0.5 MG/0.5 ML DISP.SYRIN IV PRN (15:20)
[2020-01-11] MEDS ORDERED: HYDROmorphone 1 mg/ml syringe IV PRN (15:20)
[2020-01-11] MEDS ORDERED: cyclobenzaprine 10mg tablet PO PRN (15:20)
[2020-01-11] MEDS ORDERED: albuterol 2.5 MG/3 ML nebule NEB PRN (15:30)
[2020-01-11] MEDS ORDERED: hydrOXYzine 25 MG tablet PO PRN (15:30)
--- NOTE | 2020-01-11 16:11 | NUR ---
Report called to receiving nurse. Transferred via BED Belongings . Special Issues communicated to receiving nurse. AWAKENE AND ORIENTED. VITALS STABLE. DRESSING DI. JOVANY PAIN. TO ORTHO RM 4013O AT THIS TIME.
[2020-01-11] MEDS ORDERED: calcium carbonate/vitamin D3 tablet PO SCH (17:30)
--- NOTE | 2020-01-11 18:20 | NUR ---
Received patient report from FRANCISCO Brower. Assumed patient care.
[2020-01-11] MEDS ORDERED: tranexamic acid inj. 890 MG in normal saline 100ml IV soln 100 ML IV ONE (18:30)
[2020-01-11] MEDS ORDERED: vancomycin/NS 1 GM ADD-VANTAGE 250 ML IV SCH (20:00)
[2020-01-11] MEDS: MELOXICAM 7.5 MG PO SCH (20:00)
[2020-01-11] MEDS: ketorolac trometh. 30mg/ml inj. IV SCH (20:47)
[2020-01-11] MEDS: propranolol 10mg tablet PO SCH (20:48)
[2020-01-11] MEDS ORDERED: ROPINIRole 1mg tablet PO SCH (21:00)
[2020-01-11] MEDS ORDERED: sennosides 8.6mg tablet PO SCH (21:00)
[2020-01-11] MEDS ORDERED: prazosin 1mg capsule PO SCH (21:00)
[2020-01-11] MEDS ORDERED: mirtazapine 15mg tablet PO SCH (21:00)
[2020-01-11] MEDS: ceFAZolin 1GM/D5W- ADD-VANTAGE 50 ML IV SCH (22:38)
[2020-01-11] MEDS: potassium cl 20mEq in 1/2 NS 1,000 ML IV SCH (22:38)
[2020-01-12 02:00] VITALS: BP 103/53
[2020-01-12] MEDS: ketorolac trometh. 30mg/ml inj. IV SCH ×2 (02:00→08:22)
[2020-01-12] MEDS: HYDROcodone/acetaminophen 10/325mg tab PO PRN ×2 (03:23→08:28)
[2020-01-12] MEDS: ceFAZolin 1GM/D5W- ADD-VANTAGE 50 ML IV SCH (05:22)
[2020-01-12 06:00] VITALS: BP 108/59
[2020-01-12 06:09] LABS: BASOPHILS % (AUTO) 0.2 % (0-1); EOSINOPHILS # (AUTO) 0.2 X10'3 (0-0.9); EOSINOPHILS % (AUTO) 3.9 % (0-6); HEMATOCRIT 32.9 % (35.0-45.0); HEMOGLOBIN 11.1 g/dl (12.0-16.0); LYMPHOCYTES # (AUTO) 1.5 X10'3 (1.1-4.8); LYMPHOCYTES % (AUTO) 24.5 % (21-51); MEAN CORPUSCULAR HEMOGLOBIN 32.1 PG (27.0-31.0); MEAN CORPUSCULAR HGB CONC 33.7 g/dL (33.0-36.5); MEAN CORPUSCULAR VOLUME 95.2 FL (78-98); MEAN PLATELET VOLUME 8.2 FL (7.4-10.4); MONOCYTES # (AUTO) 0.7 X10'3 (0-0.9); MONOCYTES % (AUTO) 12.1 % (2-12); NEUTROPHILS # (AUTO) 3.6 X10'3 (1.8-7.7); NEUTROPHILS % (AUTO) 59.3 % (42-75); PLATELET COUNT 121 X10'3 (140-440); RED BLOOD COUNT 3.46 X10'6 (4.20-5.60); RED CELL DISTRIBUTION WIDTH 14.1 % (11.5-14.5); WHITE BLOOD COUNT 6.1 X10'3 (4.5-11.0)
--- NOTE | 2020-01-12 06:36 | NUR ---
Patient report given, questions answered and plan of care reviewed with FRANCISCO Brower.
[2020-01-12 06:58] LABS: ANION GAP 7 (8-16); CHLORIDE 102 MMOL/L (99-107); POTASSIUM 4.4 MMOL/L (3.5-5.1); SODIUM 135 MMOL/L (135-145); TOTAL CARBON DIOXIDE 25.6 MMOL/L (24-32)
[2020-01-12] MEDS: potassium cl 20mEq in 1/2 NS 1,000 ML IV SCH (07:53)
[2020-01-12] MEDS ORDERED: loratadine 10mg tablet PO SCH (08:00)
[2020-01-12] MEDS: MELOXICAM 7.5 MG PO SCH (08:00)
[2020-01-12] MEDS ORDERED: HYDROchlorothiazide 25mg tablet PO SCH (08:00)
[2020-01-12] MEDS ORDERED: vitamin D (cholecalciferol) 1,000 unit tablet PO SCH (08:00)
[2020-01-12] MEDS ORDERED: aspirin 325mg tablet PO SCH (08:30)
[2020-01-12] MEDS: propranolol 10mg tablet PO SCH (08:31)
[2020-01-12] MEDS ORDERED: ONQPUMP ADDCANAL (08:51)
[2020-01-12] MEDS ORDERED: HYDR-4353 PO (08:51)
[2020-01-12] MEDS ORDERED: ASPI-1 PO (08:53)
[2020-01-12 10:00] VITALS: BP 141/81
--- NOTE | 2020-01-12 12:08 | NUR ---
Student documentation: I have reviewed all interventions, assessments performed and documented [facility] Student Medication Administration: For this medication-pass time frame, all medication were reviewed, dispensed, administered and documented per hospital policy by Harleenric ROWLAND [facility].
== END 2020-01-12 13:30 | disposition home health service (06) | DRG 322 ==
LOC: PAS IN 09:38 → EDSTATUS 12:45 → ORTHO 4S 13:30 → PAS IN 14:23 → ORTHO 4S 16:26
PROVIDERS: ADMIT Orthopaedic Surgery; ATTEND Orthopaedic Surgery
PROC: 0LS40ZZ Reposition Left Upper Arm Tendon, Open Approach (ICD-10-PCS; 2020-01-11)
PROC: 3E0T3BZ Introduction of Anesthetic Agent into Peripheral Nerves and Plexi, Percutaneous Approach (ICD-10-PCS; 2020-01-11)
PROC: 0RRK0JZ Replacement of Left Shoulder Joint with Synthetic Substitute, Open Approach (ICD-10-PCS; principal; 2020-01-11 12:04)
DX: M19.012 Primary osteoarthritis, left shoulder (principal); D62 Acute posthemorrhagic anemia; G89.29 Other chronic pain; I10 Essential (primary) hypertension; F17.200 Nicotine dependence, unspecified, uncomplicated; J44.1 Chronic obstructive pulmonary disease with (acute) exacerbation; M65.812 Other synovitis and tenosynovitis, left shoulder; E66.9 Obesity, unspecified; B19.20 Unspecified viral hepatitis C without hepatic coma; F32.9 Major depressive disorder, single episode, unspecified; Z88.8 Allergy status to other drugs, medicaments and biological substances; Z88.5 Allergy status to narcotic agent; Z68.26 Body mass index [BMI] 26.0-26.9, adult; Z79.899 Other long term (current) drug therapy
CPT/HCPCS: 36415; 80051; 80053; 82948; 85025; 85610; 85730; 87081; 94640; 94760; 97161; 97530; A4565; A4618; A7000; C1713; C1776; G0378; J0690; J1885; J2001; J2250; J2704; J2795; J3010; J3370; J3480; J7120

== ENCOUNTER 2020-02-16 13:48 | Emergency (ER) | payer MEDICAID ==
[~2020-02-16] VITALS: Ht 175.3 cm; Wt 78.6 kg
[~2020-02-16 13:48] MED LIST changes: +ASPI-1 PO; -DOCUMENT DATE & TIME OF BETA-BLOCKER PO ONE; +HYDR-4353 PO; +ONQPUMP ADDCANAL; -albuterol 2.5 MG/3 ML nebule NEB ONE; -cefazolin/dext.iso 2gm/50ml 50 ML IV ONE; -famotidine 20mg tablet PO ONE; -ringers solution, lacted 1,000 ML IV SCH; -tranexamic acid inj. 890 MG in normal saline 100ml IV soln 100 ML IV ONE; -vancomycin inj 1,500 MG in normal saline 300ml IV soln IV ONE
[2020-02-16] MEDS ORDERED: normal saline 1000ML IV soln IV ONE (14:20)
[2020-02-16 15:40] LABS: CLARITY,URINE CLEAR (Clear); COLOR,URINE STRAW (Yellow); GLUCOSE, URINE NEGATIVE (Neg); KETONES,URINE NEGATIVE (Neg); LEUKOCYTE ESTERASE ,URINE NEGATIVE (Neg); NITRITES, URINE NEGATIVE (Neg); OCCULT BLOOD,URINE NEGATIVE (Neg); PH,URINE 6.5 (4.8-8.0); PROTEIN,URINE TRACE mg/dl (Neg); UROBILINOGEN,URINE 0.2 E.U/dL (0.2-1.0)
[2020-02-16 15:41] LABS: BASOPHILS % (AUTO) 0.4 % (0-1); EOSINOPHILS % (AUTO) 0.1 % (0-6); HEMATOCRIT 26.5 % (35.0-45.0); HEMOGLOBIN 9.2 g/dl (12.0-16.0); LYMPHOCYTES # (AUTO) 1.1 X10'3 (1.1-4.8); LYMPHOCYTES % (AUTO) 13.7 % (21-51); MEAN CORPUSCULAR HEMOGLOBIN 34.3 PG (27.0-31.0); MEAN CORPUSCULAR HGB CONC 34.6 g/dL (33.0-36.5); MEAN CORPUSCULAR VOLUME 99.2 FL (78-98); MEAN PLATELET VOLUME 8.4 FL (7.4-10.4); MONOCYTES # (AUTO) 0.4 X10'3 (0-0.9); MONOCYTES % (AUTO) 5.1 % (2-12); NEUTROPHILS # (AUTO) 6.3 X10'3 (1.8-7.7); NEUTROPHILS % (AUTO) 80.7 % (42-75); PLATELET COUNT 104 X10'3 (140-440); RED BLOOD COUNT 2.68 X10'6 (4.20-5.60); RED CELL DISTRIBUTION WIDTH 16.5 % (11.5-14.5); WHITE BLOOD COUNT 7.9 X10'3 (4.5-11.0)
[2020-02-16 15:45] LABS: UA COLLECTION TYPE VOIDED
[2020-02-16 16:01] LABS: SQUAMOUS EPITHELIAL CELL,UR MODERATE /LPF (FEW)
[2020-02-16 16:02] LABS: BACTERIA,URINE 1+ /HPF (Neg); RBC,URINE 0-2 /HPF (0-2); WBC,URINE 0-4 /HPF (0-4)
[2020-02-16 16:07] LABS: ALANINE AMINOTRANSFERASE 54 U/L (12-78); ALBUMIN 3.5 G/DL (3.4-5.0); ALKALINE PHOSPHATASE 122 IU/L (46-116); ANION GAP 9 (8-16); ASPARTATE AMINO TRANSFERASE 224 U/L (10-37); BILIRUBIN,TOTAL 0.4 MG/DL (0.1-1.0); BLOOD UREA NITROGEN 24 MG/DL (7-18); CALCIUM 9.6 MG/DL (8.5-10.1); CHLORIDE 96 MMOL/L (99-107); CREATININE 1.09 MG/DL (0.40-0.90); GLUCOSE 117 MG/DL (70-104); SODIUM 138 MMOL/L (135-145); TOTAL CARBON DIOXIDE 33.3 MMOL/L (24-32); TOTAL PROTEIN 7.1 G/DL (6.4-8.2); eGFR 52 ML/MIN
[2020-02-16 16:09] LABS: POTASSIUM 2.8 MMOL/L (3.5-5.1)
[2020-02-16] MEDS ORDERED: levoFLOXACIN-Levaquin 750MG/D5 150 ML IV ONE (16:15)
[2020-02-16 16:18] VITALS: BP 189/104
[2020-02-16] MEDS ORDERED: LEVO750T21 PO (17:01)
[2020-02-16] MEDS ORDERED: potassium Cl 20 mEq SR tablet PO STA (17:15)
== END 2020-02-16 17:38 | disposition home or self-care (01) ==
LOC: ER 13:49
DX: J18.9 Pneumonia, unspecified organism (principal); I50.9 Heart failure, unspecified; J44.9 Chronic obstructive pulmonary disease, unspecified; G89.29 Other chronic pain; F41.9 Anxiety disorder, unspecified; F31.9 Bipolar disorder, unspecified; Z98.890 Other specified postprocedural states; Z56.0 Unemployment, unspecified; Z88.5 Allergy status to narcotic agent; Z88.8 Allergy status to other drugs, medicaments and biological substances; Z79.899 Other long term (current) drug therapy
CPT/HCPCS: 36415; 71045; 80053; 81001; 83605; 83880; 84145; 85025; 87040; 93005; 96365; 99285; J1956; J7030